=== PATIENT | female | born 1935 | race Caucasian/White ===

== ENCOUNTER 2024-11-02 11:07 | Inpatient (IN) | payer MEDICARE, SELFPAY ==
[2024-11-02] VITALS (82 sets, daily range): BP systolic 114–149; BP diastolic 62–88; PULSE 60–105; RESP 12; TEMP 36.7; O2SAT 85–99
--- NOTE | 2024-11-02 11:17 | ECG_ITS ---
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
--- NOTE | 2024-11-02 11:17 | XR_ITS ---
The [address] [address] Patient Name: NATAN BOLDEN MRN: [id number] date: 1935 Sex: F Assigned Patient Location: ER Current Patient Location: ER Accession/Order Number: [id number] Exam Date: 11/02/2024 11:25 Report Date: 11/02/2024 12:05 At the request of: SERGE SMITH Procedure: XR chest 1V EXAMINATION: XR chest 1V HISTORY: sob COMPARISON: XR chest 11/15/2012 FINDINGS: LUNGS: Dense opacities within medial right lung base and throughout mid and lower left lung. VASCULATURE: No increased pulmonary vasculature. PLEURA: Suspect left pleural effusion. CARDIAC: Cardiomegaly; grossly stable. MEDIASTINUM: No visible mass or adenopathy. BONES: Scoliotic curvature of thoracic spine. OTHER: Negative. XR/XR chest 1V IMPRESSION: 1. Moderate to marked basilar infiltrates, left greater than right. 2. Suspect small to moderate left pleural effusion. 3. Grossly stable cardiomegaly. Electronically authenticated by: KRISTY ANDERSON Date: 11/02/2024 12:05
--- NOTE | 2024-11-02 11:28 | PC.NURSE ---
turned oxyen up to 5L for a pulse ox of 87%, ER notified
[2024-11-02 11:42] LABS: Basophils Percent Auto 0.3 % (0.2-2.0); Eosinophils Percent Auto 0.6 % (0.9-7.0); Hematocrit 38.3 % (36.0-48.0); Hemoglobin 11.7 g/dL (12.0-16.0); Immature Granulocytes Abs Auto 0.08 10^3/uL (0.00-0.03); Immature Granulocytes Pct Auto 1.2 % (0.0-0.5); Lymphocytes Absolute Auto 0.9 10^3/uL (1.2-3.8); Lymphocytes Percent Auto 13.3 % (20.5-60.0); Mean Corpuscular HGB Conc 30.5 g/dL (29.9-35.2); Mean Corpuscular Volume 101.3 fL (81.0-99.0); Mean Platelet Volume 10.4 fL (9.5-13.5); Monocytes Absolute Auto 0.7 10^3/uL (0.3-0.8); Monocytes Percent Auto 9.8 % (1.7-12.0); Neutrophils Percent Auto 74.8 % (43.0-75.0); Platelet Count 169 10^3/uL (150-450); Red Blood Count 3.78 10^6/uL (4.20-5.40); Red Cell Distribution Width 14.6 % (11.0-15.0); White Blood Count 6.6 10^3/uL (4.0-11.0)
[2024-11-02] MEDS: IPRATROPIUM/ALBUTEROL SULFATE 3 ML AMPUL.NEB IH ×2 (11:48→18:32)
[2024-11-02 11:56] LABS: Influenza Virus A Antigen Negative; Influenza Virus B Antigen Negative; Internal Control Within Normal Limits; SARS-CoV-2 Ag NEGATIVE (NEGATIVE)
[2024-11-02 11:57] LABS: Alanine Aminotransferase 19 U/L (14-59); Albumin Globulin Ratio 1.1; Albumin Level 3.3 g/dL (3.4-5.0); Alkaline Phosphatase 72 U/L (46-116); Anion Gap 2.7; Aspartate Amino Transferase 22 U/L (15-37); Bilirubin Total 0.4 mg/dL (0.2-1.0); Carbon Dioxide 43.4 mmol/L (21.0-32.0); Chloride 98 mmol/L (98-107); Estimated GFR (African America >60 (>=60 mL/min/1.73m^2); Estimated GFR (Non-African Ame >60 (>=60 mL/min/1.73m^2); Glucose 132 mg/dL (74-106); Potassium 4.1 mmol/L (3.5-5.1); Sodium 140 mmol/L (136-145); Total Protein 6.3 g/dL (6.4-8.2)
[2024-11-02 12:03] LABS: Magnesium 1.7 mg/dL (1.8-2.4); Troponin I High Sensitivity 14.6 pg/mL (4.0-51.3)
[2024-11-02] MEDS: CEFTRIAXONE 1,000 MG in 0.9 % SODIUM CHLORIDE 50 ML 100 MG IV (13:00)
[2024-11-02 13:11] LABS: Allen Test POSITIVE (POSITIVE); Base Excess ABG 16.9 mmol/L (-2.0-2.0); HCO3 ABG 40.7 mmol/L (22.0-26.0); Liters per Minute 6; O2 Mode NC; Oxygen Saturation ABG 97.8 %; PO2 ABG 82.2 mmHg (80.0-100.0); pH ABG 7.463 (7.350-7.450)
[2024-11-02 13:12] LABS: ABG PCO2 56.9 mmHg (35.0-45.0); Puncture Site RR
[2024-11-02] MEDS: AZITHROMYCIN 500 MG in 0.9 % SODIUM CHLORIDE 250 ML 250 MG IV (13:28)
--- NOTE | 2024-11-02 13:30 | ED.SOB1 ---
HPI - SOB/Dyspnea General Chief Complaint: Shortness of Breath/Dyspnea Stated Complaint: WEAKNESS Time Seen by Provider: 11/02/24 11:17 Source: patient and caregiver Mode of arrival: ambulance History of Present Illness HPI Narrative: 89-year-old female coming to us from the [facility] with increasing shortness of breath for the last few days, the patient have a history of COPD and she is on 2 L nasal cannula at the baseline but for the last few days she has been using more oxygen, there is also cough there is no nausea vomiting or any chest pain, patient have no increasing leg swelling there is no exposure to anybody with similar symptoms The patient was provided with a breathing treatment and Solu-Medrol before arrival Related Data Home Medications ?Medication ?Instructions ?Recorded ?Confirmed albuterol sulfate 2.5 mg/3 mL 2.5 mg inhalation Q6H 11/02/24 11/02/24 (0.083 %) solution for nebulization alendronate 70 mg tablet 70 mg PO QWEEK 11/02/24 11/02/24 amlodipine 10 mg tablet 10 mg PO DAILY 11/02/24 11/02/24 apixaban 2.5 mg tablet (Eliquis) 2.5 mg PO BID 11/02/24 11/02/24 cholecalciferol (vitamin D3) 125 125 mcg PO DAILY 11/02/24 11/02/24 mcg (5,000 unit) tablet (Vitamin D3) guaifenesin 600 mg tablet, 600 mg PO BID 11/02/24 11/02/24 extended release 12 hr hydrochlorothiazide 12.5 mg capsule 12.5 mg PO DAILY 11/02/24 11/02/24 latanoprost 0.005 % eye drops 1 drp ophthalmic (eye) .QHS 11/02/24 11/02/24 metoprolol tartrate 25 mg tablet 25 mg PO BID 11/02/24 11/02/24 multivitamin (Daily Multi-Vitamin 1 tab PO DAILY 11/02/24 11/02/24 tablet) polyethylene glycol 3350 17 17 g PO DAILY 11/02/24 11/02/24 gram/dose oral powder (ClearLax) tiotropium 2.5 mcg-olodaterol 2.5 2 inh inhalation DAILY 11/02/24 11/02/24 mcg/actuation mist for inhalation (Stiolto Respimat) Allergies Allergy/AdvReac Type Severity Reaction Status Date / Time calcium AdvReac Mild Abdominal Verified 11/02/24 11:16 Pain Sulfa (Sulfonamide AdvReac Mild Abdominal Verified 11/02/24 11:16 Antibiotics) Pain Review of Systems ROS Status of ROS 10 or more systems reviewed and unremarkable except as noted in history and below [facility] Medical History (Updated 11/02/24 @ 13:37 by Karena Lamar MD) History of embolism ?Z86.718 - Personal history of other venous thrombosis and embolism (ICD-10) History of hypertension ?Z86.79 - Personal history of other diseases of the circulatory system (ICD-10) History of scoliosis ?Z87.39 - Personal history of other diseases of the musculoskeletal system and connective tissue (ICD-10) History of gastroesophageal reflux (GERD) ?Z87.19 - Personal history of other diseases of the digestive system (ICD-10) History of mitral valve disease ?Z86.79 - Personal history of other diseases of the circulatory system (ICD-10) History of anemia ?Z86.2 - Personal history of diseases of the blood and blood-forming organs and certain disorders involving the immune mechanism (ICD-10) History of heart failure ?Z86.79 - Personal history of other diseases of the circulatory system (ICD-10) History of atrial fibrillation ?Z86.79 - Personal history of other diseases of the circulatory system (ICD-10) History of COPD ?Z87.09 - Personal history of other diseases of the respiratory system (ICD-10) Hx of chronic respiratory failure ?Z87.09 - Personal history of other diseases of the respiratory system (ICD-10) Hx of bacterial pneumonia ?Z87.01 - Personal history of pneumonia (recurrent) (ICD-10) Exam Narrative Exam Narrative: Nurses notes and vital signs reviewed and patient is not hypoxic. General: Well-appearing and mild distress due to breathing Skin: Warm, dry, no pallor noted. No rash. Head: Normocephalic, atraumatic. Neck: Supple, non-tender. Eye: Pupils are equal, round and EOMI. No scleral icterus. Ears, Nose, Mouth, and Throat: TM are clear, no nasal mucosal hypertrophy. Oral mucosa is moist, no posterior oropharynx erythema, uvula is mid-line Cardiovascular: Regular Rate and Rhythm without murmur, gallop or rub. Respiratory: The patient have a decreased air entry bilaterally and the audible expiratory lung wheezes in upper lung rosales with the patient being tachypneic Back: No midline thoracic or lumbar vertebral tenderness. No CVA tenderness Musculoskeletal: normal ROM, no calf or popliteal tenderness, no lower extremity edema/swelling GI: Abdomen is soft, non-distended. Normal bowel sounds. No masses appreciated. No tenderness to palpation. No rebound, guarding, or rigidity noted. Neurological: A&O x4. No cranial nerve dysfunction observed. Moves all extremities. Sensation intact. Psychiatric: Cooperative and interactive. Normal mood and affect. Constitutional Vital Signs, click to edit/add: Last Vital Signs Temp 98.0 F 11/02/24 11:08 Pulse 73 11/02/24 11:08 Resp 26 H 11/02/24 11:08 BP 149/69 H 11/02/24 11:08 Pulse Ox 87 L 11/02/24 11:28 O2 Del Method Nasal Cannula 11/02/24 11:28 O2 Flow Rate 5 11/02/24 11:28 Course Vital Signs Vital signs: Vital Signs Temperature 98.0 F 11/02/24 11:08 Pulse Rate 73 11/02/24 11:08 Respiratory Rate 26 H 11/02/24 11:08 Blood Pressure 149/69 H 11/02/24 11:08 Pulse Oximetry 97 11/02/24 11:08 Oxygen Delivery Method Nasal Cannula 11/02/24 11:08 Oxygen Delivery Flow Rate 4 11/02/24 11:08 Temperature 98.0 F 11/02/24 11:08 Pulse Rate 73 11/02/24 11:08 Respiratory Rate 26 H 11/02/24 11:08 Blood Pressure 149/69 H 11/02/24 11:08 Pulse Oximetry 87 L 11/02/24 11:28 Oxygen Delivery Method Nasal Cannula 11/02/24 11:28 Oxygen Delivery Flow Rate 5 11/02/24 11:28 MDM - SOB/Dyspnea MDM Narrative Medical decision making narrative: The patient EKG in the ER showing sinus rhythm with a heart rate of [address] elevation or depression CBC and chemistry showed no acute significant pathology except for the elevated bicarb which is mostly secondary to CO2 retention The patient was saturating 85 to 89% on 5 L nasal cannula and she was still tachypneic She was placed on the BiPAP at 10/5 Chest x-ray shows obvious pneumonia as well as possible effusion The patient was provided with ceftriaxone and azithromycin after she had a blood culture obtained Patient case was discussed with and he agreed on admitting pt for further management of Hypoxemia and copd Patient went was placed on BiPAP she mentioned that she does not want to be intubated Lab Data Labs: Lab Results 11/02/24 11/02/24 11/02/24 Range/Units 11:20 11:29 13:05 WBC 6.6 (4.0-11.0) 10^3/uL RBC 3.78 L (4.20-5.40) 10^6/uL Hgb 11.7 L (12.0-16.0) g/dL Hct 38.3 (36.0-48.0) % MCV 101.3 H (81.0-99.0) fL MCH 31.0 (26.7-34.0) pg MCHC 30.5 (29.9-35.2) g/dL RDW 14.6 (11.0-15.0) % Plt Count 169 (150-450) 10^3/uL MPV 10.4 (9.5-13.5) fL Neut % (Auto) 74.8 (43.0-75.0) % Lymph % (Auto) 13.3 L (20.5-60.0) % [place] % (Auto) 9.8 (1.7-12.0) % Eos % (Auto) 0.6 L (0.9-7.0) % Baso % (Auto) 0.3 (0.2-2.0) % Neut # (Auto) 5.0 (1.4-6.5) 10^3/uL Lymph # (Auto) 0.9 L (1.2-3.8) 10^3/uL [place] # (Auto) 0.7 (0.3-0.8) 10^3/uL Eos # (Auto) 0.0 (0.0-0.7) 10^3/uL Baso # (Auto) 0.0 (0.0-0.1) 10^3/uL Abs Immat Gran (auto) 0.08 H (0.00-0.03) 10^3/uL Imm/Tot Granulo (auto) 1.2 H (0.0-0.5) % Puncture Site Rr ABG pH 7.463 H (7.350-7.450) ABG pCO2 56.9 H* (35.0-45.0) mmHg ABG pO2 82.2 (80.0-100.0) mmHg ABG HCO3 40.7 H (22.0-26.0) mmol/L ABG O2 Saturation 97.8 % ABG Base Excess 16.9 H (-2.0-2.0) mmol/L John Test Positive (POSITIVE) O2 Liters/Min 6 Sodium 140 (136-145) mmol/L Potassium 4.1 (3.5-5.1) mmol/L Chloride 98 (98-107) mmol/L Carbon Dioxide 43.4 H (21.0-32.0) mmol/L Anion Gap 2.7 BUN 11.0 (7.0-18.0) mg/dL Creatinine 0.61 (0.55-1.02) mg/dL Est GFR ( Amer) >60 (>=60 mL/min/1.73m^2) Est GFR (Non-Af Amer) >60 (>=60 mL/min/1.73m^2) BUN/Creatinine Ratio 18.0 Glucose 132 H (74-106) mg/dL Calcium 9.0 (8.5-10.1) mg/dL Magnesium 1.7 L (1.8-2.4) mg/dL Total Bilirubin 0.4 (0.2-1.0) mg/dL AST 22 (15-37) U/L ALT 19 (14-59) U/L Alkaline Phosphatase 72 (46-116) U/L Troponin I High Sens 14.6 (4.0-51.3) pg/mL NT-Pro-B Natriuret Pep 231.0 (<=1800.0) pg/mL Total Protein 6.3 L (6.4-8.2) g/dL Albumin 3.3 L (3.4-5.0) g/dL Globulin 3.0 g/dL Albumin/Globulin Ratio 1.1 Influenza Type A Ag Negative Influenza Type B Ag Negative SARS-CoV-2 Ag (CV2AG) Negative (NEGATIVE) Discharge Plan Discharge Chief Complaint: Shortness of Breath/Dyspnea Clinical Impression: Hypoxemia, Respiratory failure, COPD exacerbation, Pneumonia Patient Disposition: Admitted As Inpatient Time of Disposition Decision: 13:37
[2024-11-02] MEDS: MAGNESIUM SULFATE IN WATER 2 GM/50 ML PREMIX IV (13:54)
[2024-11-02 15:58] LABS: Bilirubin Urine NEGATIVE (NEGATIVE); Blood Urine NEGATIVE (NEGATIVE); Clarity Urine CLEAR (CLEAR); Color Urine LT. YELLOW (YELLOW); Glucose Urine UA NEGATIVE (NEGATIVE); Ketones Urine NEGATIVE (NEGATIVE); Leukocyte Esterase Urine SMALL (NEGATIVE); Nitrite Urine POSITIVE (NEGATIVE); Protein Urine NEGATIVE (NEG/TRACE); Specific Gravity Urine 1.015 (1.005-1.025); Urobilinogen Urine 0.2 EU/dL (0.2-1.0)
[2024-11-02 16:15] LABS: Bacteria Urine LARGE #/HPF (NONE SEEN); Cast Seen? NONE SEEN #/LPF (NONE SEEN); Crystals Seen? None Seen #/HPF (None Seen); Mucus Urine SMALL (NONE SEEN); RBC Urine 0-2 #/HPF (0-2); Squamous Epithelial Cell Urine FEW #/LPF (NONE/RARE); Transitional Epi Cells Urine RARE #/LPF (NONE SEEN); Urine Culture Indicated YES
--- NOTE | 2024-11-02 18:46 | US_ITS ---
The [place] [id number] Patient Name: NATAN BOLDEN MRN: [id number] date: 1935 Sex: F Assigned Patient Location: ER Current Patient Location: ER Accession/Order Number: [id number] Exam Date: 11/02/2024 19:00 Report Date: 11/02/2024 20:20 At the request of: SERGE SMITH Procedure: US venous doppler LE BI CLINICAL DATA: Leg pain PROCEDURE: Bilateral lower extremity venous duplex ultrasound TECHNIQUE: [place]caraz-scale, color flow, and waveform spectral analysis was performed of the bilateral lower extremities. FINDINGS: The bilateral common femoral, profunda femoral, femoral, and popliteal veins were compressible. The saphenous veins were compressible. No venous thrombosis was seen. The veins fill with color Doppler. Augmentation was normal. US/US venous doppler LE BI IMPRESSION: 1. No acute lower extremity deep venous thrombosis. 2. No superficial venous thrombosis. Electronically authenticated by: Mary Jo MADSEN Date: 11/02/2024 20:20
--- NOTE | 2024-11-02 18:58 | P.HP_ITS ---
HPI H&P: HPI History of Present Illness Chief complaint: WEAKNESS Narrative: Patient with a history of emphysema currently a resident at a rehabilitation alf, presented to the emergency room with increasing cough and shortness of breath and hypoxia, but 6 weeks ago she was on 2 L, was admitted to an outside facility for COPD was able to improve her oxygen and but still requiring 4 L, he was then transferred to rehab for the last month, today though having increasing hypoxia now requiring up to 6 L, in the emergency room O2 saturation was 85%. When I saw her she was still in the emergency room secondary to being on BiPAP and awaiting transfer to the intensive care unit, resting fairly comfortably in bed some cough throughout the evaluation, maybe some mild conversational dyspnea denied chest pain Opioid HPI Opioid Management Most Recent Pain and Opioid Data: No Data to Display Review of Systems ROS Status of ROS 10 or more systems reviewed and unremark able except as noted in history and below [facility] Medical History (Updated 11/02/24 @ 13:37 by Karena Lamar MD) History of embolism ?Z86.718 - Personal history of other venous thrombosis and embolism (ICD-10) History of hypertension ?Z86.79 - Personal history of other diseases of the circulatory system (ICD- 10) History of scoliosis ?Z87.39 - Personal history of other diseases of the musculoskeletal system and connective tissue (ICD-10) History of gastroesophageal reflux (GERD) ?Z87.19 - Personal history of other diseases of the digestive system (ICD-10) History of mitral valve disease ?Z86.79 - Personal history of other diseases of the circulatory system (ICD- 10) History of anemia ?Z86.2 - Personal history of diseases of the blood and blood-forming organs and certain disorders involving the immune mechanism (ICD-10) History of heart failure ?Z86.79 - Personal history of other diseases of the circulatory system (ICD- 10) History of atrial fibrillation ?Z86.79 - Personal history of other diseases of the circulatory system (ICD- 10) History of COPD ?Z87.09 - Personal history of other diseases of the respiratory system (ICD- 10) Hx of chronic respiratory failure ?Z87.09 - Personal history of other diseases of the respiratory system (ICD- 10) Hx of bacterial pneumonia ?Z87.01 - Personal history of pneumonia (recurrent) (ICD-10) Meds Home Medications and Allergies Home Medications ?Medication ?Instructions ?Recorded ?Confirmed ?Type albuterol sulfate 2.5 mg/3 mL 2.5 mg inhalation Q6H 11/02/24 11/02/24 History (0.083 %) solution for nebulization alendronate 70 mg tablet 70 mg PO QWEEK 11/02/24 11/02/24 History amlodipine 10 mg tablet 10 mg PO DAILY 11/02/24 11/02/24 History apixaban 2.5 mg tablet (Eliquis) 2.5 mg PO BID 11/02/24 11/02/24 History cholecalciferol (vitamin D3) 125 125 mcg PO DAILY 11/02/24 11/02/24 History mcg (5,000 unit) tablet (Vitamin D3) guaifenesin 600 mg tablet, 600 mg PO BID 11/02/24 11/02/24 History extended release 12 hr hydrochlorothiazide 12.5 mg capsule 12.5 mg PO DAILY 11/02/24 11/02/24 History latanoprost 0.005 % eye drops 1 drp ophthalmic (eye) .QHS 11/02/24 11/02/24 History metoprolol tartrate 25 mg tablet 25 mg PO BID 11/02/24 11/02/24 History multivitamin (Daily Multi-Vitamin 1 tab PO DAILY 11/02/24 11/02/24 History tablet) polyethylene glycol 3350 17 17 g PO DAILY 11/02/24 11/02/24 History gram/dose oral powder (ClearLax) tiotropium 2.5 mcg-olodaterol 2.5 2 inh inhalation DAILY 11/02/24 11/02/24 History mcg/actuation mist for inhalation (Stiolto Respimat) Allergies Allergy/AdvReac Type Severity Reaction Status Date / Time calcium AdvReac Mild Abdominal Verified 11/02/24 11:16 Pain Sulfa (Sulfonamide AdvReac Mild Abdominal Verified 11/02/24 11:16 Antibiotics) Pain Exam Constitutional Vital Signs, click to edit/add: Last Vital Signs Temp 98.0 F 11/02/24 11:08 Pulse 95 H 11/02/24 18:40 Resp 39 H 11/02/24 18:40 BP 126/67 11/02/24 18:00 Pulse Ox 90 L 11/02/24 18:40 O2 Del Method Nasal Cannula 11/02/24 11:28 O2 Flow Rate 5 11/02/24 11:28 FiO2 40 11/02/24 12:46 Results Labs Labs: Short CBC 11/02/24 Range/Units 11:29 WBC 6.6 (4.0-11.0) 10^3/uL Hgb 11.7 L (12.0-16.0) g/dL Hct 38.3 (36.0-48.0) % Plt Count 169 (150-450) 10^3/uL BMP 11/02/24 11:29 Sodium 140 Potassium 4.1 Chloride 98 Carbon Dioxide 43.4 H BUN 11.0 Creatinine 0.61 Glucose 132 H Calcium 9.0 Liver Function 11/02/24 Range/Units 11:29 Total Bilirubin 0.4 (0.2-1.0) mg/dL AST 22 (15-37) U/L ALT 19 (14-59) U/L Alkaline Phosphatase 72 (46-116) U/L Albumin 3.3 L (3.4-5.0) g/dL Urine 11/02/24 Range/Units 15:50 Urine Color Lt. yellow (YELLOW) Urine Clarity Clear (CLEAR) Urine pH 6.0 (5.0-9.0) Ur Specific [place] 1.015 (1.005-1.025) Urine Protein Negative (NEG/TRACE) mg/dL Urine Glucose (UA) Negative (NEGATIVE) mg/dL ABG ABG results: 11/02/24 13:05 ABG pH 7.463 H ABG pCO2 56.9 H* ABG pO2 82.2 ABG HCO3 40.7 H ABG O2 Saturation 97.8 ABG Base Excess 16.9 H Assessment and Plan Assessment and Plan (1) COPD exacerbation: Plan Admission findings: Sinus tachycardia, respiratory distress, acute hypoxia respiratory failure with O2 sat of 85% on 4 L requiring BiPAP ventilation, leukocytosis normal but significant left shift, elevated pCO2 due to acute exacerbation of chronic oxygen dependent hypercapnic respiratory failure COPD secondary to bilateral healthcare acquired pneumonia Healthcare acquired pneumonia resulting in acute hypoxic respiratory failure requiring BiPAP ventilation with acute exacerbation of chronic hypoxic respiratory failure oxygen dependent hypercapnic COPD-steroids, aerosols, IV antibiotics to cover broad-spectrum antibiotics therapy, try to obtain sputum culture, based on progress may consider CTA of chest tomorrow Acute UTI-culture pending, monitor results of cultures, antibiotics as outlined above likely carpninoska Iron deficiency anemia-monitor daily Osteoporosis-can hold alendronate while in the hospital Chronic anticoagulation secondary to atrial fibrillation-continue with current medication Hypertension-continue with current medication Chronic constipation-continue current medication Admission status: Patient with bilateral pneumonia with acute hypoxia respiratory failure requiring BiPAP ventilation, healthcare acquired pneumonia, medically necessary treatment will span 2 midnights. Inpatient status.
[2024-11-02] MEDS: PIPERACILLIN SODIUM/TAZOBACTAM 3.375 GM in 0.9 % SODIUM CHLORIDE 50 ML IV (20:21)
[2024-11-02 20:35] LABS: Lactate/Lactic Acid 3.5 mmol/L (0.4-2.0)
[2024-11-02] MEDS: GUAIFENESIN 600 MG TAB.ER.12H PO (20:50)
[2024-11-02] MEDS: APIXABAN 5 MG TABLET 2.5 MG PO (20:50)
[2024-11-02] MEDS: LATANOPROST 0.005% 2.5 ML BOTTLE 1 DROP OP (20:50)
[2024-11-02] MEDS: METOPROLOL TARTRATE 25 MG TABLET PO (20:50)
[2024-11-02] MEDS: VANCOMYCIN HCL 1,000 MG in 0.9 % SODIUM CHLORIDE 250 ML 250 MG IV (20:51)
[2024-11-02] MEDS: METHYLPREDNISOLONE SOD SUCC PF 125 MG/2 ML VIAL IVP (21:58)
[2024-11-03] VITALS (131 sets, daily range): BP systolic 111–139; BP diastolic 54–90; PULSE 60–119; RESP 12; TEMP 36.3–36.8; O2SAT 79–97; BMI 25.8
[2024-11-03] MEDS: ALBUTEROL SULFATE 2.5 MG/3 ML VIAL NEB IH (00:11)
--- NOTE | 2024-11-03 02:55 | RESP.RT ---
Titrated pressure to 12/6 and FiO2 to 50% to maintain SpO2 > 90%
[2024-11-03] MEDS: PIPERACILLIN SODIUM/TAZOBACTAM 3.375 GM in 0.9 % SODIUM CHLORIDE 50 ML IV ×3 (03:58→19:22)
[2024-11-03] MEDS: METHYLPREDNISOLONE SOD SUCC PF 125 MG/2 ML VIAL IVP ×4 (03:58→21:16)
[2024-11-03] MEDS: IPRATROPIUM/ALBUTEROL SULFATE 3 ML AMPUL.NEB IH ×4 (04:33→23:24)
[2024-11-03 04:55] LABS: Basophils Percent Auto 0.2 % (0.2-2.0); Hematocrit 38.2 % (36.0-48.0); Hemoglobin 11.5 g/dL (12.0-16.0); Immature Granulocytes Abs Auto 0.05 10^3/uL (0.00-0.03); Immature Granulocytes Pct Auto 0.8 % (0.0-0.5); Lymphocytes Absolute Auto 0.3 10^3/uL (1.2-3.8); Lymphocytes Percent Auto 4.6 % (20.5-60.0); Mean Corpuscular HGB Conc 30.1 g/dL (29.9-35.2); Mean Corpuscular Hemoglobin 29.9 pg (26.7-34.0); Mean Corpuscular Volume 99.2 fL (81.0-99.0); Mean Platelet Volume 11.4 fL (9.5-13.5); Monocytes Absolute Auto 0.1 10^3/uL (0.3-0.8); Monocytes Percent Auto 1.8 % (1.7-12.0); Neutrophils Absolute Auto 5.8 10^3/uL (1.4-6.5); Neutrophils Percent Auto 92.6 % (43.0-75.0); Platelet Count 169 10^3/uL (150-450); Red Blood Count 3.85 10^6/uL (4.20-5.40); Red Cell Distribution Width 14.6 % (11.0-15.0); White Blood Count 6.3 10^3/uL (4.0-11.0)
[2024-11-03 05:04] LABS: Anion Gap 6.4; Calcium 8.7 mg/dL (8.5-10.1); Carbon Dioxide 40.6 mmol/L (21.0-32.0); Chloride 98 mmol/L (98-107); Estimated GFR (African America >60 (>=60 mL/min/1.73m^2); Estimated GFR (Non-African Ame >60 (>=60 mL/min/1.73m^2); Glucose 179 mg/dL (74-106); Sodium 141 mmol/L (136-145)
--- NOTE | 2024-11-03 05:22 | P.PN_ITS ---
Progress Note: Subjective Subjective Interval history: Patient continues bumetanide normal I saw her in the intensive care unit this morning, she was off the BiPAP with O2 sats in the low 90s Exam Constitutional Vital Signs, click to edit/add: Last Vital Signs Temp 97.4 F L 11/03/24 05:03 Pulse 80 11/03/24 05:08 Resp 30 H 11/03/24 05:08 BP 137/76 11/03/24 05:03 Pulse Ox 95 11/03/24 05:08 O2 Del Method BIPAP 11/03/24 05:08 O2 Flow Rate 5 11/02/24 11:28 FiO2 50 11/03/24 05:08 Documenting provider has reviewed patient's vital signs: yes Common normals: apparent distress (Mild respiratory distress with cough) Lymph Lymphatic: no lymphadenopathy noted Chest Common normals: inspection of chest normal Respiratory Common normals: abnormal respiratory effort (Mild respiratory distress with cough) Auscultation: rhonchi Progress Note: Objective Labs Labs: Short CBC 11/02/24 11/03/24 Range/Units 11:29 04:11 WBC 6.6 6.3 (4.0-11.0) 10^3/uL Hgb 11.7 L 11.5 L (12.0-16.0) g/dL Hct 38.3 38.2 (36.0-48.0) % Plt Count 169 169 (150-450) 10^3/uL BMP 11/02/24 11:29 Sodium 140 Potassium 4.1 Chloride 98 Carbon Dioxide 43.4 H BUN 11.0 Creatinine 0.61 Glucose 132 H Calcium 9.0 Liver Function 11/02/24 Range/Units 11:29 Total Bilirubin 0.4 (0.2-1.0) mg/dL AST 22 (15-37) U/L ALT 19 (14-59) U/L Alkaline Phosphatase 72 (46-116) U/L Albumin 3.3 L (3.4-5.0) g/dL Urine 11/02/24 Range/Units 15:50 Urine Color Lt. yellow (YELLOW) Urine Clarity Clear (CLEAR) Urine pH 6.0 (5.0-9.0) Ur Specific [place] 1.015 (1.005-1.025) Urine Protein Negative (NEG/TRACE) mg/dL Urine Glucose (UA) Negative (NEGATIVE) mg/dL Progress Note: A&P Assessment and Plan (1) COPD exacerbation: Plan Admission findings: Sinus tachycardia, respiratory distress, acute hypoxia respiratory failure with O2 sat of 85% on 4 L requiring BiPAP ventilation, lactic acidosis, leukocytosis normal but significant left shift, elevated pCO2 due to acute exacerbation of chronic oxygen dependent hypercapnic respiratory failure COPD secondary to bilateral healthcare acquired pneumonia resulting in severe sepsis Severe sepsis due to Healthcare acquired pneumonia resulting in acute hypoxic respiratory failure requiring BiPAP ventilation with acute exacerbation of chronic hypoxic respiratory failure oxygen dependent hypercapnic COPD-off of BiPAP currently, continue with steroids, aerosols, IV antibiotics, trying to obtain sputum culture still, CT scan did not show any pulmonary embolism. Patient unable to tolerate large volume volume fluid boluses as typically recommended by severe sepsis but blood pressure was stable Acute UTI-culture pending, monitor results of cultures, antibiotics as outlined above likely carpal Iron deficiency anemia-monitor daily-Down somewhat today Osteoporosis-can hold alendronate while in the hospital Chronic anticoagulation secondary to atrial fibrillation-continue with current medication Hypertension-continue with current medication Left ventricular hypertrophy-maintain quality blood pressure control Right bundle branch block-stable Hypomagnesemia-supplemented, monitor Chronic constipation-continue current medication Mild protein calorie malnutrition-encourage higher protein diet Admission status: Patient with bilateral pneumonia with acute hypoxia respiratory failure requiring BiPAP ventilation, healthcare acquired pneumonia with severe sepsis, medically necessary treatment will span 2 midnights. Inpatient status. ?
--- NOTE | 2024-11-03 05:23 | CT_ITS ---
[address] [address] Patient Name: NATAN BOLDEN MRN: [id number] date: 1935 Sex: F Assigned Patient Location: ICU Current Patient Location: ICU Accession/Order Number: [id number] Exam Date: 11/03/2024 07:45 Report Date: 11/03/2024 08:49 At the request of: AGAPITO ARANDA Procedure: CT angio chest EXAMINATION: CT angio chest HISTORY: acute hypoxia COMPARISON: XR chest 11/02/2024 TECHNIQUE: Multi-planar CT images were created with IV contrast. Axial, Coronal, and Sagittal images. Dose reduction techniques were achieved by using automated exposure control and/or adjustment of mA and/or kV according to patient size and/or use of iterative reconstruction technique. 3-D reconstruction was performed on a separate workstation. FINDINGS: VASCULATURE: No pulmonary embolism or abnormal opacity. LUNGS: Marked emphysematous changes. Partial consolidation/collapse of the basilar segments of the lower lobes bilaterally with patent bronchi into these regions. PLEURA: No mass, effusion, or pneumothorax. [place]: No mass or adenopathy. MEDIASTINUM: No mass or adenopathy. CARDIAC: Cardiomegaly. No pericardial effusion. AORTA: No aneurysm or dissection. CHEST WALL: No mass or axillary adenopathy. BONES: Multiple old healed rib fractures. Kyphosis and scoliosis of thoracic spine. LIMITED ABDOMEN: No suspicious findings. Limited images of the upper abdomen. OTHER: Negative. CT/CT angio chest IMPRESSION: 1. No pulmonary embolism. 2. Hyper expanded lungs compatible with moderate to marked COPD/emphysema. 3. Partial collapse as consolidation of the basilar segments of the lower lobes bilaterally. Pneumonia? 4. Cardiomegaly. Electronically authenticated by: KRISTY ANDERSON Date: 11/03/2024 08:49
[2024-11-03 05:52] LABS: Magnesium 2.2 mg/dL (1.8-2.4)
--- NOTE | 2024-11-03 09:04 | SWNOTE1 ---
Pt is from the [facility] and she is a precert to return.
--- NOTE | 2024-11-03 09:11 | SWNOTE1 ---
SW faxed ED note, H&P, PT note, labs, vitals, diagnostic imaging, and PT note to [place] so precert can be started for pt to return once medically stable. SW to send OT once eval is completed.
[2024-11-03] MEDS: POLYETHYLENE GLYCOL 3350 17 GM POWDER PACKET PO (09:29)
--- NOTE | 2024-11-03 09:32 | CM.NOTE ---
Rounds made with Dr. Quintana, no discharge today. Pt from [facility] skilled, pt verbalizes she would like to return to [facility] at discharge. RN will attempt to wean oxygen as tolerated.
[2024-11-03] MEDS: CHOLECALCIFEROL (VITAMIN D3) 125 MCG/5,000 UNIT TABLET PO (09:33)
[2024-11-03] MEDS: GUAIFENESIN 600 MG TAB.ER.12H PO ×2 (09:33→20:20)
[2024-11-03] MEDS: APIXABAN 5 MG TABLET 2.5 MG PO ×2 (09:33→20:20)
[2024-11-03] MEDS: AMLODIPINE BESYLATE 5 MG TABLET 10 MG PO (09:33)
[2024-11-03] MEDS: HYDROCHLOROTHIAZIDE 25 MG TABLET 12.5 MG PO (09:33)
--- NOTE | 2024-11-03 10:01 | CM.NOTE ---
Important Message From Medicare discussed with pt, pt verbalizes understanding and signs paper. Original given to pt and copy placed on pt's chart.
[2024-11-03] MEDS: MULTIVITAMIN TABLET 1 TAB PO (10:37)
[2024-11-03] MEDS: METOPROLOL TARTRATE 25 MG TABLET PO ×2 (10:37→20:20)
--- NOTE | 2024-11-03 12:22 | SWNOTE1 ---
ADITI spoke to Betsy at [facility] and precert started.
--- NOTE | 2024-11-03 14:00 | SWNOTE1 ---
SW put together packet for weekend and [place] will call if she gets approved.
[2024-11-03] MEDS: VANCOMYCIN HCL 1,000 MG in 0.9 % SODIUM CHLORIDE 250 ML 250 MG IV (20:20)
[2024-11-03] MEDS: CALCIUM CARBONATE 500 MG (200MG ELEMENTAL) TAB CHEW PO (23:00)
[2024-11-03] MEDS: lidocaine HCL 15 ML, MAG HYDROX/ALUMINUM HYD/SIMETH 30 ML, HYOSCYAMINE SULFATE 0.25 MG PO (23:01)
--- NOTE | 2024-11-03 23:25 | RESP.RT ---
Placed on bipap for hs. See bipap charting
[2024-11-04] VITALS (104 sets, daily range): BP systolic 111–156; BP diastolic 65–93; PULSE 70–105; TEMP 36.6–37.1; O2SAT 87–98
[2024-11-04 01:28] LABS: Troponin I High Sensitivity 12.5 pg/mL (4.0-51.3)
[2024-11-04] MEDS: METHYLPREDNISOLONE SOD SUCC PF 125 MG/2 ML VIAL IVP ×4 (05:17→21:24)
[2024-11-04] MEDS: PIPERACILLIN SODIUM/TAZOBACTAM 3.375 GM in 0.9 % SODIUM CHLORIDE 50 ML IV (05:17)
[2024-11-04] MEDS: IPRATROPIUM/ALBUTEROL SULFATE 3 ML AMPUL.NEB IH ×4 (05:19→23:08)
[2024-11-04 05:47] LABS: Hematocrit 37.1 % (36.0-48.0); Hemoglobin 11.3 g/dL (12.0-16.0); Mean Corpuscular HGB Conc 30.5 g/dL (29.9-35.2); Mean Corpuscular Hemoglobin 30.5 pg (26.7-34.0); Mean Platelet Volume 11.2 fL (9.5-13.5); Platelet Count 180 10^3/uL (150-450); Red Blood Count 3.71 10^6/uL (4.20-5.40); Red Cell Distribution Width 14.6 % (11.0-15.0); White Blood Count 13.8 10^3/uL (4.0-11.0)
[2024-11-04 06:01] LABS: BUN Creatinine Ratio 39.5; Carbon Dioxide 40.3 mmol/L (21.0-32.0); Chloride 99 mmol/L (98-107); Estimated GFR (African America >60 (>=60 mL/min/1.73m^2); Estimated GFR (Non-African Ame >60 (>=60 mL/min/1.73m^2); Glucose 221 mg/dL (74-106); Potassium 4.3 mmol/L (3.5-5.1); Sodium 140 mmol/L (136-145)
[2024-11-04 06:15] LABS: Lymphocytes Absolute Manual 0.27 10^3/uL (1.20-3.80); Monocytes Absolute Manual 0.55 10^3/uL (0.30-0.80); Segmented Neut Absolute Manual 12.97 10^3/uL (1.4-6.5)
[2024-11-04] MEDS: MULTIVITAMIN TABLET 1 TAB PO (08:28)
[2024-11-04] MEDS: APIXABAN 5 MG TABLET 2.5 MG PO ×2 (08:28→21:23)
[2024-11-04] MEDS: POLYETHYLENE GLYCOL 3350 17 GM POWDER PACKET PO (08:28)
[2024-11-04] MEDS: HYDROCHLOROTHIAZIDE 25 MG TABLET 12.5 MG PO (08:29)
[2024-11-04] MEDS: AMLODIPINE BESYLATE 5 MG TABLET 10 MG PO (08:29)
[2024-11-04] MEDS: CHOLECALCIFEROL (VITAMIN D3) 125 MCG/5,000 UNIT TABLET PO (08:29)
[2024-11-04] MEDS: METOPROLOL TARTRATE 25 MG TABLET PO ×2 (08:29→21:23)
[2024-11-04] MEDS: GUAIFENESIN 600 MG TAB.ER.12H PO ×2 (08:29→21:23)
[2024-11-04] MEDS: CEFTRIAXONE 1,000 MG in 0.9 % SODIUM CHLORIDE 50 ML 100 MG IV (09:23)
[2024-11-04] MEDS: LEVOFLOXACIN IN DEXTROSE 5 % 750 MG/150 ML PREMIX 100 MG IV (10:02)
--- NOTE | 2024-11-04 11:33 | PT.DAILY ---
Physical Therapy Daily Note PT Daily Note/Assess Start: 11/03/24 08:27 Freq: Status: Active Protocol: Document 11/04/24 11:24 [id number] (Rec: 11/04/24 11:33 [id number]) Physical Therapy Daily Note/Assessment Time In/Time Out Time In 09:34 Time Out 09:46 Pain In Pain Level 0 Pain Out Pain Level 0 Subjective Subjective Patient received seated in chair at bedside and on Vapotherm and legs elevated. Agreeable to participate with PT, requests to not walk to far. Therapeutic Exercise Time Therapeutic Exercise 4 Minutes (minutes) Therapeutic Exercise 0 Units Therapeutic Exercise Treatment Therapeutic Exercise Seated DELMA LE ther ex to increase strength for toe/heel Treatment raises, hip ABD and LAQ x 10 reps, in standing for marching 2(5), completed between sit to stands. Therapeutic Activity Time Therapeutic Activity 8 Minutes (minutes) Therapeutic Activity 1 Units Therapeutic Activity Treatment Chair Transfer Contact Guard Assist Ability Therapeutic Activity O2 level prior to functional movement @ 95%. Sit>stand Comments 2WW CGA +1, performed 3 reps while standing for 1 minute each. Required ~30s therapeutic rest break between reps. O2 level @ 93% after sit to stands. Patient does take 1-2 small steps forward and back when standing. Stand>sit CGA +1, patient uses DELMA UE to control descent to chair. O2 level 94% after returning to sitting. Patients legs elevated on foot rest of chair, CBWR and needs met. Total Physical Therapy Time Total Therapy 12 Minutes Total Physical 1 Therapy Units Summary Daily Note Summary Patient is fatigued and SOB after performing sit to stands. Patient would benefit from return to [facility] and receive PT to address functional mobility deficits.
--- NOTE | 2024-11-04 12:55 | P.PN_ITS ---
Progress Note: Subjective Subjective Interval history: Patient feels better this am. Placed on vapotherm and less SOB. Chest not as tight but continued symptoms. Mild cough and sputum. Afebrile. No chest pain or palpitations. Decreased appetite but no emesis or diarrhea. Continued weakness. Exam Constitutional Vital Signs, click to edit/add: Last Vital Signs Temp 98.1 F 11/04/24 11:41 Pulse 73 11/04/24 11:41 Resp 18 11/04/24 11:41 BP 111/65 11/04/24 11:41 Pulse Ox 97 11/04/24 11:41 O2 Del Method Vapotherm 11/04/24 11:41 O2 Flow Rate 40 11/04/24 10:21 FiO2 40 11/04/24 11:41 Documenting provider has reviewed patient's vital signs: yes Common normals: no apparent distress, oriented x3 and alert HENMT Common normals: normocephalic Eye Common normals: PERRL and EOMs intact bilaterally Respiratory Auscultation: diminished lung sounds Cardio Common normals: regular rate, regular rhythm, no gallops, no murmurs and no rub GI Common normals: Normal to inspection, nondistended, normoactive bowel sounds present and non-tender Extremity Common normals: no pedal edema Progress Note: Objective Labs Labs: Short CBC 11/04/24 Range/Units 05:34 WBC 13.8 H (4.0-11.0) 10^3/uL Hgb 11.3 L (12.0-16.0) g/dL Hct 37.1 (36.0-48.0) % Plt Count 180 (150-450) 10^3/uL [facility] 11/04/24 05:34 Sodium 140 Potassium 4.3 Chloride 99 Carbon Dioxide 40.3 H BUN 32.0 H Creatinine 0.81 Glucose 221 H Calcium 9.0 Progress Note: A&P Assessment and Plan (1) Pneumonia: (2) COPD exacerbation: (3) Acute on chronic respiratory failure with hypoxia and hypercapnia: (4) Benign essential hypertension: (5) Paroxysmal atrial fibrillation: Plan Patient feels much better on high flow oxygen. Continue steroids and wean O2 as tolerated. Change antibiotics to levaquin and rocephin. Continue PT for weakness. Patient wants to change code status to DNRCC-A with no intubation.
[2024-11-05] VITALS (40 sets, daily range): BP systolic 136–157; BP diastolic 66–87; PULSE 55–102; TEMP 36.6–36.9; O2SAT 86–94
[2024-11-05] MEDS: METHYLPREDNISOLONE SOD SUCC PF 125 MG/2 ML VIAL IVP ×4 (03:56→22:04)
--- NOTE | 2024-11-05 04:09 | PC.NURSE ---
Pt's SpO2 was 95% on 40L 45% Vapotherm at 0400. Pt titrated to 40L 40% Vapotherm at 0400. Pt's SpO2 now 94% on 40L 40% Vapotherm. RT informed.
[2024-11-05] MEDS: IPRATROPIUM/ALBUTEROL SULFATE 3 ML AMPUL.NEB IH ×4 (05:11→23:38)
[2024-11-05 05:54] LABS: Basophils Percent Auto 0.1 % (0.2-2.0); Hematocrit 37.2 % (36.0-48.0); Hemoglobin 11.5 g/dL (12.0-16.0); Immature Granulocytes Abs Auto 0.07 10^3/uL (0.00-0.03); Immature Granulocytes Pct Auto 0.6 % (0.0-0.5); Lymphocytes Absolute Auto 0.2 10^3/uL (1.2-3.8); Mean Corpuscular HGB Conc 30.9 g/dL (29.9-35.2); Mean Corpuscular Hemoglobin 30.8 pg (26.7-34.0); Mean Corpuscular Volume 99.7 fL (81.0-99.0); Mean Platelet Volume 11.4 fL (9.5-13.5); Monocytes Absolute Auto 0.2 10^3/uL (0.3-0.8); Monocytes Percent Auto 2.1 % (1.7-12.0); Neutrophils Absolute Auto 10.9 10^3/uL (1.4-6.5); Neutrophils Percent Auto 95.2 % (43.0-75.0); Platelet Count 166 10^3/uL (150-450); Red Blood Count 3.73 10^6/uL (4.20-5.40); Red Cell Distribution Width 14.5 % (11.0-15.0); White Blood Count 11.4 10^3/uL (4.0-11.0)
[2024-11-05 05:59] LABS: Anion Gap 4.5; BUN Creatinine Ratio 42.4; Calcium 8.4 mg/dL (8.5-10.1); Chloride 100 mmol/L (98-107); Estimated GFR (African America >60 (>=60 mL/min/1.73m^2); Estimated GFR (Non-African Ame >60 (>=60 mL/min/1.73m^2); Glucose 195 mg/dL (74-106); Potassium 4.5 mmol/L (3.5-5.1); Sodium 141 mmol/L (136-145)
[2024-11-05] MEDS: METOPROLOL TARTRATE 25 MG TABLET PO ×2 (08:18→22:04)
[2024-11-05] MEDS: HYDROCHLOROTHIAZIDE 25 MG TABLET 12.5 MG PO (08:18)
[2024-11-05] MEDS: APIXABAN 5 MG TABLET 2.5 MG PO ×2 (08:18→22:03)
[2024-11-05] MEDS: AMLODIPINE BESYLATE 5 MG TABLET 10 MG PO (08:18)
[2024-11-05] MEDS: CHOLECALCIFEROL (VITAMIN D3) 125 MCG/5,000 UNIT TABLET PO (08:18)
[2024-11-05] MEDS: MULTIVITAMIN TABLET 1 TAB PO (08:18)
[2024-11-05] MEDS: GUAIFENESIN 600 MG TAB.ER.12H PO ×2 (08:18→22:04)
[2024-11-05] MEDS: CEFTRIAXONE 1,000 MG in 0.9 % SODIUM CHLORIDE 50 ML 100 MG IV (09:13)
--- NOTE | 2024-11-05 10:58 | PM.PN ---
Progress Note: Subjective Subjective Interval history: Patient stable this am. Remains on vapotherm and breathing improved. Less SOB and chest not as tight. Mild cough and sputum. Afebrile. No chest pain or palpitations. Appetite improving and no emesis or diarrhea. Continued weakness. Exam Constitutional Vital Signs, click to edit/add: Last Vital Signs Temp 98.1 F 11/05/24 08:18 Pulse 83 11/05/24 09:55 Resp 20 11/05/24 08:18 BP 141/83 11/05/24 08:18 Pulse Ox 92 L 11/05/24 09:55 O2 Del Method Vapotherm 11/05/24 05:10 O2 Flow Rate 40 11/05/24 05:10 FiO2 40 11/05/24 08:18 Documenting provider has reviewed patient's vital signs: yes Common normals: no apparent distress, oriented x3 and alert HENMT Common normals: normocephalic Eye Common normals: PERRL and EOMs intact bilaterally Respiratory Common normals: normal respiratory effort Auscultation: wheezes scattered wheezes Cardio Common normals: regular rate, regular rhythm, no gallops, no murmurs and no rub GI Common normals: Normal to inspection, nondistended, normoactive bowel sounds present and non-tender Extremity Common normals: no pedal edema Progress Note: Objective Labs Labs: Short CBC 11/05/24 Range/Units 05:33 WBC 11.4 H (4.0-11.0) 10^3/uL Hgb 11.5 L (12.0-16.0) g/dL Hct 37.2 (36.0-48.0) % Plt Count 166 (150-450) 10^3/uL BMP 11/05/24 05:33 Sodium 141 Potassium 4.5 Chloride 100 Carbon Dioxide 41.0 H BUN 28.0 H Creatinine 0.66 Glucose 195 H Calcium 8.4 L Progress Note: A&P Assessment and Plan (1) Pneumonia: (2) COPD exacerbation: (3) Acute on chronic respiratory failure with hypoxia and hypercapnia: (4) Benign essential hypertension: (5) Paroxysmal atrial fibrillation: Plan Patient slowly improving. Continue antibiotics, steroids, and breathing treatments. Wean oxygen as tolerated. Continue PT/OT for weakness. Transfer to med/surg.
[2024-11-06] VITALS (28 sets, daily range): BP systolic 110–156; BP diastolic 63–86; PULSE 68–155; TEMP 36.3–36.8; O2SAT 90–94
--- NOTE | 2024-11-06 04:34 | ECG_ITS ---
The [facility] Test Date: 2024-11-06 Pat Name: NATAN BOLDEN Department: Room: [facility] Gender: Female Delivery Lead: : 1935 Requested By: [id number] Order Number: [id number] Reading MD: DEIRDRE ARGUETA Measurements Intervals [place] Rate: 120 P: PA: QRS: -18 QRSD: 129 T: -1 QT: 324 QTc: 459 Interpretive Statements ATRIAL FIBRILLATION WITH RAPID VENTRICULAR RESPONSE RIGHT BUNDLE BRANCH BLOCK [120+ ms QRS DURATION, UPRIGHT V1, 40+ ms S IN I/aVL/V4/V5/V6] INTERPRETATION BASED ON A DEFAULT AGE OF 40 YEARS Electronically Signed On 11-06-2024 20:44:12 EST by DEIRDRE ARGUETA
[2024-11-06] MEDS: METHYLPREDNISOLONE SOD SUCC PF 125 MG/2 ML VIAL IVP (04:53)
[2024-11-06] MEDS: METOPROLOL TARTRATE 5 MG/5 ML VIAL IVP ×2 (04:55→12:22)
[2024-11-06 05:36] LABS: Hematocrit 36.9 % (36.0-48.0); Hemoglobin 11.5 g/dL (12.0-16.0); Immature Granulocytes Abs Auto 0.07 10^3/uL (0.00-0.03); Immature Granulocytes Pct Auto 0.8 % (0.0-0.5); Lymphocytes Absolute Auto 0.2 10^3/uL (1.2-3.8); Lymphocytes Percent Auto 2.3 % (20.5-60.0); Mean Corpuscular HGB Conc 31.2 g/dL (29.9-35.2); Mean Corpuscular Hemoglobin 30.7 pg (26.7-34.0); Mean Corpuscular Volume 98.4 fL (81.0-99.0); Mean Platelet Volume 10.8 fL (9.5-13.5); Monocytes Absolute Auto 0.3 10^3/uL (0.3-0.8); Monocytes Percent Auto 3.4 % (1.7-12.0); Neutrophils Absolute Auto 8.1 10^3/uL (1.4-6.5); Neutrophils Percent Auto 93.5 % (43.0-75.0); Platelet Count 187 10^3/uL (150-450); Red Blood Count 3.75 10^6/uL (4.20-5.40); Red Cell Distribution Width 14.3 % (11.0-15.0); White Blood Count 8.6 10^3/uL (4.0-11.0)
[2024-11-06 05:55] LABS: Anion Gap 6.4; BUN Creatinine Ratio 38.6; Calcium 7.9 mg/dL (8.5-10.1); Carbon Dioxide 38.5 mmol/L (21.0-32.0); Chloride 101 mmol/L (98-107); Estimated GFR (African America >60 (>=60 mL/min/1.73m^2); Estimated GFR (Non-African Ame >60 (>=60 mL/min/1.73m^2); Glucose 223 mg/dL (74-106); Potassium 3.9 mmol/L (3.5-5.1); Sodium 142 mmol/L (136-145)
--- NOTE | 2024-11-06 08:25 | PM.PN ---
Progress Note: Subjective Subjective Interval history: Patient's breathing has improved. Currently on 4L NC oxygen. Mild cough and sputum. Afebrile. No chest pain or palpitations. Appetite improving and no emesis or diarrhea. Heart rate elevation today 140's. Stopped duonebs and placed on Xopenex. Also increased Metoprolol from 25mg to 50mg BID. Appears to be in Afib with RVR still. On Eliquis. Stopped amlodipine and added Cardizem 60mg QID start now. Also given Metoprolol IV x 2 over last night and this morning. Patient denies chest pain or heart racing. Exam Narrative Exam Narrative: General: Patient is alert, and oriented to person, place and time with normal affect, proper hygiene, short of breath with conversing Skin: no visible rashes, or ulcers Head: atraumatic, acephalic Eyes: PERRLA, no nystagmus present, conjunctiva clear, no scleral icterus Ears: normal gross auditory acuity Heart: increased rate and rhythm Lungs: no audible wheezes, crackles but diminished breath sounds all lung rosales Abdomen: Normal audible bowel sounds, no distension, No palpable masses, no organomegaly, no rebound/guarding/ or rigidity Musculoskeletal: no swelling bilateral lower extremities Neuro: CN II-X grossly intact Constitutional Vital Signs, click to edit/add: Last Vital Signs Temp 98.2 F 11/06/24 07:55 Pulse 145 H 11/06/24 08:00 Resp 20 11/06/24 08:00 BP 125/86 11/06/24 07:55 Pulse Ox 92 L 11/06/24 07:55 O2 Del Method Vapotherm 11/06/24 07:55 O2 Flow Rate 40 11/06/24 07:55 FiO2 40 11/06/24 07:55 Progress Note: Objective Labs Labs: Short CBC 11/06/24 Range/Units 05:27 WBC 8.6 (4.0-11.0) 10^3/uL Hgb 11.5 L (12.0-16.0) g/dL Hct 36.9 (36.0-48.0) % Plt Count 187 (150-450) 10^3/uL BMP 11/06/24 05:27 Sodium 142 Potassium 3.9 Chloride 101 Carbon Dioxide 38.5 H BUN 27.0 H Creatinine 0.70 Glucose 223 H Calcium 7.9 L Progress Note: A&P Assessment and Plan (1) Pneumonia: Assessment and Plan: continue treatment with Levaquin and Rocephin, Decrease IV steriods today to 40mg q6 hours. OPEP as needed. off Vapotherm to 4L NC oxygen now. Qualifiers: Pneumonia type: due to unspecified organism Laterality: bilateral Lung location: lower lobe of lung Qualified Code(s): J18.9 - Pneumonia, unspecified organism (2) Acute on chronic respiratory failure with hypoxia and hypercapnia: Assessment and Plan: off Vapotherm to 4L NC oxygen now (3) COPD exacerbation: Assessment and Plan: continue treatment for #1 (4) Paroxysmal atrial fibrillation: Assessment and Plan: rate is not controlled today, I have increased metoprolol to 50mg BID, Given 2 PRN doses of IV metoprolol. Stop amlodipine, start Oral Cardizem 60mg QID. switched to Xopenex. will check Magnesium and electrolytes now. Continue eliquis (5) Benign essential hypertension: Assessment and Plan: continue metoprolol Plan Patient is a DNR CCA continue Eliquis for DVT prophylaxis Patient will require 1-2 more days of hospital necessary care.
--- NOTE | 2024-11-06 08:46 | CM.NOTE ---
2nd Important Message From Medicare discussed with pt, pt denies any questions or concerns.
[2024-11-06] MEDS: AMLODIPINE BESYLATE 5 MG TABLET 10 MG PO (08:50)
[2024-11-06] MEDS: METOPROLOL TARTRATE 50 MG TABLET PO ×2 (08:50→20:49)
[2024-11-06] MEDS: APIXABAN 5 MG TABLET 2.5 MG PO ×2 (08:50→20:48)
[2024-11-06] MEDS: CHOLECALCIFEROL (VITAMIN D3) 125 MCG/5,000 UNIT TABLET PO (08:50)
[2024-11-06] MEDS: HYDROCHLOROTHIAZIDE 25 MG TABLET 12.5 MG PO (08:50)
[2024-11-06] MEDS: GUAIFENESIN 600 MG TAB.ER.12H PO ×2 (08:50→20:49)
[2024-11-06] MEDS: MULTIVITAMIN TABLET 1 TAB PO (08:50)
[2024-11-06] MEDS: METHYLPREDNISOLONE SOD SUCC PF 40 MG/ML VIAL IVP ×3 (10:19→21:41)
[2024-11-06] MEDS: CEFTRIAXONE 1,000 MG in 0.9 % SODIUM CHLORIDE 50 ML 100 MG IV (10:19)
[2024-11-06] MEDS: 0.9 % SODIUM CHLORIDE 250 ML 10 ML IV (10:19)
[2024-11-06] MEDS: LEVALBUTEROL HCL 1.25 MG/3 ML VIAL NEB IH ×3 (10:47→22:26)
--- NOTE | 2024-11-06 10:48 | PT.DAILY ---
Physical Therapy Daily Note PT Daily Note/Assess Start: 11/03/24 08:27 Freq: Status: Active Protocol: Document 11/06/24 10:44 MARIANNA (Rec: 11/06/24 10:48 MARIANNA [id number]) Physical Therapy Daily Note/Assessment Time In/Time Out Time In 10:25 Time Out 10:40 Pain In Pain N/A Pain Out Pain N/A Subjective Subjective Pt sitting in BS chair upon arrival. Agrees to PT this morning. On Vapotherm. Therapeutic Exercise Time Therapeutic Exercise 7 Minutes (minutes) Therapeutic Exercise 1 Units Therapeutic Exercise Treatment Therapeutic Exercise Seated bilat LE strengthening ex complete in BS chair Treatment 10x ea. Standing marches and HS curls 10x ea at RW with bilat UE support - CGA. Therapeutic Activity Time Therapeutic Activity 3 Minutes (minutes) Therapeutic Activity 0 Units Therapeutic Activity Treatment Chair Transfer Standby Assistance Ability Therapeutic Activity Sit>stand SBA to RW. Standing ex complete at RW prior Comments to gait. Pt amb f-b 3'x3. SpO2 drops to 83% but quickly recovers within 30 sec to 90% with seated rest break. Remains in BS chair with call light within reach and needs met. Total Physical Therapy Time Total Therapy 10 Minutes Total Physical 1 Therapy Units Summary Daily Note Summary Sats drop with exertion to low 80% while on vapotherm. Functional/steady but limited session due to vapotherm.
[2024-11-06] MEDS: LEVOFLOXACIN IN DEXTROSE 5 % 750 MG/150 ML PREMIX 100 MG IV (11:30)
--- NOTE | 2024-11-06 12:01 | CM.NOTE ---
Rounds made with Dr. Jackson, respiratory therapy at bedside titrating oxygen down to 4L NC. No discharge today. Pt c/o diarrhea today, Dr. Jackson will order a probiotic for pt. SW will send updates to [facility], pt will return to [facility] for skilled therapy when medically ready for discharge.
--- NOTE | 2024-11-06 13:21 | SWNOTE1 ---
SW sent updates to [facility] for precert. Updates included vitals, PT/OT notes from today, physician notes, and nursing notes.
[2024-11-06] MEDS: DILTIAZEM HCL 60 MG TABLET PO ×3 (14:07→21:41)
[2024-11-06 15:08] LABS: Anion Gap 4.7; BUN Creatinine Ratio 26.4; Calcium 8.2 mg/dL (8.5-10.1); Carbon Dioxide 38.2 mmol/L (21.0-32.0); Chloride 99 mmol/L (98-107); Estimated GFR (African America 59 (>=60 mL/min/1.73m^2); Estimated GFR (Non-African Ame 49 (>=60 mL/min/1.73m^2); Glucose 308 mg/dL (74-106); Magnesium 1.8 mg/dL (1.8-2.4); Potassium 3.9 mmol/L (3.5-5.1); Sodium 138 mmol/L (136-145)
[2024-11-06] MEDS: L. ACIDOPHILUS/L.BULGARICUS 1 PACKET GRAN.PACK PO (20:48)
[2024-11-06] MEDS: ALPRAZOLAM 0.25 MG TABLET PO (22:28)
[2024-11-07] VITALS (25 sets, daily range): BP systolic 114–136; BP diastolic 58–84; PULSE 51–144; TEMP 36.4–36.7; O2SAT 90–93
[2024-11-07] MEDS: LEVALBUTEROL HCL 1.25 MG/3 ML VIAL NEB IH ×4 (04:18→23:19)
[2024-11-07 04:50] LABS: Basophils Percent Auto 0.1 % (0.2-2.0); Hematocrit 37.2 % (36.0-48.0); Hemoglobin 11.3 g/dL (12.0-16.0); Immature Granulocytes Abs Auto 0.11 10^3/uL (0.00-0.03); Immature Granulocytes Pct Auto 1.2 % (0.0-0.5); Lymphocytes Absolute Auto 0.2 10^3/uL (1.2-3.8); Lymphocytes Percent Auto 1.8 % (20.5-60.0); Mean Corpuscular HGB Conc 30.4 g/dL (29.9-35.2); Mean Corpuscular Hemoglobin 30.2 pg (26.7-34.0); Mean Corpuscular Volume 99.5 fL (81.0-99.0); Mean Platelet Volume 11.3 fL (9.5-13.5); Monocytes Absolute Auto 0.3 10^3/uL (0.3-0.8); Monocytes Percent Auto 3.6 % (1.7-12.0); Neutrophils Absolute Auto 8.4 10^3/uL (1.4-6.5); Neutrophils Percent Auto 93.3 % (43.0-75.0); Platelet Count 204 10^3/uL (150-450); Red Blood Count 3.74 10^6/uL (4.20-5.40); Red Cell Distribution Width 14.2 % (11.0-15.0)
[2024-11-07 05:01] LABS: BUN Creatinine Ratio 39.3; Calcium 8.2 mg/dL (8.5-10.1); Carbon Dioxide 39.2 mmol/L (21.0-32.0); Chloride 99 mmol/L (98-107); Estimated GFR (African America >60 (>=60 mL/min/1.73m^2); Estimated GFR (Non-African Ame >60 (>=60 mL/min/1.73m^2); Glucose 294 mg/dL (74-106); Potassium 4.2 mmol/L (3.5-5.1); Sodium 139 mmol/L (136-145)
[2024-11-07] MEDS: METHYLPREDNISOLONE SOD SUCC PF 40 MG/ML VIAL IVP ×4 (05:32→21:29)
[2024-11-07] MEDS: DILTIAZEM HCL 60 MG TABLET PO ×4 (05:34→21:29)
--- NOTE | 2024-11-07 09:39 | PM.PN ---
Progress Note: Subjective Subjective Interval history: Patient's breathing has improved. Currently on 4L NC oxygen. Mild cough and sputum. Afebrile. No chest pain or palpitations. Appetite improving and no emesis or diarrhea. Patient denies chest pain or heart racing. She is less short of breath with conversing today compared to yesterday. Exam Narrative Exam Narrative: General: Patient is alert, and oriented to person, place and time with normal affect, proper hygiene, short of breath with conversing Skin: no visible rashes, or ulcers Head: atraumatic, acephalic Eyes: PERRLA, no nystagmus present, conjunctiva clear, no scleral icterus Ears: normal gross auditory acuity Heart: increased rate and rhythm Lungs: no audible wheezes, crackles but diminished breath sounds all lung rosales Abdomen: Normal audible bowel sounds, no distension, No palpable masses, no organomegaly, no rebound/guarding/ or rigidity Musculoskeletal: no swelling bilateral lower extremities Neuro: CN II-X grossly intact Constitutional Vital Signs, click to edit/add: Last Vital Signs Temp 97.8 F 11/07/24 08:00 Pulse 110 H 11/07/24 08:00 Resp 20 11/07/24 08:00 BP 115/58 11/07/24 08:00 Pulse Ox 90 L 11/07/24 08:00 O2 Del Method Nasal Cannula 11/07/24 08:00 O2 Flow Rate 4 11/07/24 08:00 FiO2 40 11/06/24 10:47 Progress Note: Objective Labs Labs: Short CBC 11/07/24 Range/Units 04:36 WBC 9.0 (4.0-11.0) 10^3/uL Hgb 11.3 L (12.0-16.0) g/dL Hct 37.2 (36.0-48.0) % Plt Count 204 (150-450) 10^3/uL BMP 11/06/24 11/07/24 14:35 04:36 Sodium 138 139 Potassium 3.9 4.2 Chloride 99 99 Carbon Dioxide 38.2 H 39.2 H BUN 28.0 H 33.0 H Creatinine 1.06 H 0.84 Glucose 308 H 294 H Calcium 8.2 L 8.2 L Progress Note: A&P Assessment and Plan (1) Pneumonia: Assessment and Plan: continue treatment with Levaquin and Rocephin, Decreased IV steroids to 40mg q6 hours. OPEP as needed. off Vapotherm to 4L NC oxygen now. Qualifiers: Laterality: bilateral Lung location: lower lobe of lung Pneumonia type: due to unspecified organism Qualified Code(s): J18.9 - Pneumonia, unspecified organism (2) Acute on chronic respiratory failure with hypoxia and hypercapnia: Assessment and Plan: ff Vapotherm to 4L NC oxygen now, hopeful stable to go to SNF tomorrow (3) COPD exacerbation: Assessment and Plan: continue treatment for #1 (4) Paroxysmal atrial fibrillation: Assessment and Plan: metoprolol to 50mg BID, continue Oral Cardizem 60mg QID and eliquis (5) Benign essential hypertension: Assessment and Plan: continue metoprolol Plan Patient is a DNR CCA continue Eliquis for DVT prophylaxis Patient will require 1-2 more days of hospital necessary care, precert to rehab facility
[2024-11-07] MEDS: METOPROLOL TARTRATE 50 MG TABLET PO ×2 (09:49→21:29)
[2024-11-07] MEDS: MULTIVITAMIN TABLET 1 TAB PO (09:49)
[2024-11-07] MEDS: L. ACIDOPHILUS/L.BULGARICUS 1 PACKET GRAN.PACK PO ×2 (09:49→21:29)
[2024-11-07] MEDS: HYDROCHLOROTHIAZIDE 25 MG TABLET 12.5 MG PO (09:49)
[2024-11-07] MEDS: GUAIFENESIN 600 MG TAB.ER.12H PO ×2 (09:49→21:29)
[2024-11-07] MEDS: APIXABAN 5 MG TABLET 2.5 MG PO ×2 (09:49→21:29)
[2024-11-07] MEDS: CHOLECALCIFEROL (VITAMIN D3) 125 MCG/5,000 UNIT TABLET PO (09:49)
[2024-11-07] MEDS: CEFTRIAXONE 1,000 MG in 0.9 % SODIUM CHLORIDE 50 ML 100 MG IV (09:50)
--- NOTE | 2024-11-07 10:30 | REH.PTDLY ---
Physical Therapy Daily Note PT Daily Note/Assess Start: 11/03/24 08:27 Freq: Status: Active Protocol: Document 11/07/24 09:35 FLORENCE (Rec: 11/07/24 10:29 FLORENCE [id number]) Physical Therapy Daily Note/Assessment Time In 09:20 Time Out 09:35 Subjective Pt up in chair upon arrival, nodding off. Pt reports she'd like to stay up in chair and is agreeable to some light exercises. Pt is now on 4 L of O2. SpO2 at 90% prior to rx. Therapeutic Exercise 8 Minutes (minutes) Therapeutic Exercise 1 Units Therapeutic Exercise Instructed in B LE seated exs 10x ea with AP, LAQ, Treatment marching, hip abd and add squeeze for improved strength . Cues to perform at slower pace and focus on breathing . SpO2 fluctuates between 88-90% with seated exs. Therapeutic Activity 5 Minutes (minutes) Therapeutic Activity 0 Units Therapeutic Activity Sit to stand transfers CGA. Gait training with RW and 4 Comments L of O2 20 feet in room. Limited gait distance due to pt not ambulating a distance as of late. Once sitting checked pt's O2 sats and pt is at 80%, taking 3 mins to rise to 90%. Total Therapy 13 Minutes Total Physical 1 Therapy Units Daily Note Summary Pt pleasant to work with and complains of mild fatigue post rx. Pt's O2 sats drop to 80% with gait training on 4L of O2. Nursing notified of this. Pt at 90% sitting up in chair post rx. Pt wishes to be able to go home upon DC as she misses her house, but would recommend SNF stay to become stronger as pt is very weak and unable to care for herself at this time.
--- NOTE | 2024-11-07 11:22 | SWNOTE1 ---
SW sent PT/OT , labs, and vitals from today to [facility] for precert.
--- NOTE | 2024-11-07 13:31 | CM.NOTE ---
Rounds made with Dr. Jackson, pt tolerating 4L NC. Pt will possible discharge 2/ for skilled therapy at [facility].
--- NOTE | 2024-11-07 14:15 | SWNOTE1 ---
Pt has expressed to doctor, case management, nurse, an PT that she is now going home and not going to the [facility]. SW called daughter to confirm the plan is for her is to return to [facility]. SW explained to daughter how pt did with therapy today and that she would still benefit from SNF. Pt's daughter in agreement and feels she needs rehab for a little bit longer. Daughter voiced that pt has not been home since September and is just ready to be home. SW expressed to daughter that SW will stiop back in. SW stopped in room in afternoon and daughter was in room. SW did express to pt that she would benefit from some more rehab. SW explained that her stats are still dropping and it takes a bit to recover. Pt did become teary eyed and voiced she is just ready to be home, but she is agreeable to go back for a little bit.
--- NOTE | 2024-11-07 14:23 | SWNOTE1 ---
ADITI received an email from Jaiden turpin [facility] and 's insurance is requesting a peer to peer from the physician and they are intending to deny. ADITI sent the information on to Dr. Jackson and let her know peer to peer has to be done by 12:00 on 11/08/24.
[2024-11-07] MEDS: CALCIUM CARBONATE 500 MG (200MG ELEMENTAL) TAB CHEW PO (16:18)
[2024-11-07] MEDS: METOPROLOL TARTRATE 5 MG/5 ML VIAL IVP (18:47)
[2024-11-08] VITALS (24 sets, daily range): BP systolic 104–152; BP diastolic 61–84; PULSE 61–140; TEMP 36.4–36.6; O2SAT 87–93
[2024-11-08] MEDS: LEVALBUTEROL HCL 1.25 MG/3 ML VIAL NEB IH ×4 (04:00→22:49)
[2024-11-08] MEDS: METHYLPREDNISOLONE SOD SUCC PF 40 MG/ML VIAL IVP ×2 (04:01→09:22)
[2024-11-08] MEDS: DILTIAZEM HCL 60 MG TABLET PO ×2 (05:15→11:30)
[2024-11-08 05:23] LABS: Basophils Percent Auto 0.2 % (0.2-2.0); Eosinophils Percent Auto 0.1 % (0.9-7.0); Hematocrit 37.1 % (36.0-48.0); Hemoglobin 11.6 g/dL (12.0-16.0); Immature Granulocytes Abs Auto 0.15 10^3/uL (0.00-0.03); Immature Granulocytes Pct Auto 1.7 % (0.0-0.5); Lymphocytes Absolute Auto 0.2 10^3/uL (1.2-3.8); Lymphocytes Percent Auto 2.1 % (20.5-60.0); Mean Corpuscular HGB Conc 31.3 g/dL (29.9-35.2); Mean Corpuscular Hemoglobin 31.1 pg (26.7-34.0); Mean Corpuscular Volume 99.5 fL (81.0-99.0); Mean Platelet Volume 10.9 fL (9.5-13.5); Monocytes Absolute Auto 0.3 10^3/uL (0.3-0.8); Monocytes Percent Auto 2.9 % (1.7-12.0); Neutrophils Absolute Auto 8.5 10^3/uL (1.4-6.5); Platelet Count 203 10^3/uL (150-450); Red Blood Count 3.73 10^6/uL (4.20-5.40); White Blood Count 9.1 10^3/uL (4.0-11.0)
[2024-11-08 05:39] LABS: Anion Gap 9.2; Calcium 8.5 mg/dL (8.5-10.1); Carbon Dioxide 38.2 mmol/L (21.0-32.0); Chloride 98 mmol/L (98-107); Estimated GFR (African America >60 (>=60 mL/min/1.73m^2); Estimated GFR (Non-African Ame >60 (>=60 mL/min/1.73m^2); Glucose 298 mg/dL (74-106); Potassium 4.4 mmol/L (3.5-5.1); Sodium 141 mmol/L (136-145)
[2024-11-08] MEDS: APIXABAN 5 MG TABLET 2.5 MG PO ×2 (08:16→20:03)
[2024-11-08] MEDS: MULTIVITAMIN TABLET 1 TAB PO (08:16)
[2024-11-08] MEDS: HYDROCHLOROTHIAZIDE 25 MG TABLET 12.5 MG PO (08:16)
[2024-11-08] MEDS: METOPROLOL TARTRATE 50 MG TABLET PO ×2 (08:16→09:22)
[2024-11-08] MEDS: GUAIFENESIN 600 MG TAB.ER.12H PO (08:16)
[2024-11-08] MEDS: CHOLECALCIFEROL (VITAMIN D3) 125 MCG/5,000 UNIT TABLET PO (08:16)
[2024-11-08] MEDS: L. ACIDOPHILUS/L.BULGARICUS 1 PACKET GRAN.PACK PO ×2 (08:17→20:04)
[2024-11-08] MEDS: METOPROLOL TARTRATE 5 MG/5 ML VIAL IVP (08:50)
[2024-11-08] MEDS: CEFTRIAXONE 1,000 MG in 0.9 % SODIUM CHLORIDE 50 ML 100 MG IV (08:50)
--- NOTE | 2024-11-08 08:58 | P.PN_ITS ---
Progress Note: Subjective Subjective Interval history: Patient's HR started in the 140-150's this morning, she was given IV metoprolol 5mg once. I have increased her Oral lopressor to 100mg BID. I have also increased oral Cardizem today to 120mg TID. Elevated proBNP 2300, Chest X-ray shows infiltrate vs pulm edema. I have also placed her on strict I&O's, Lasix 20mg IV daily and stopped IV steroids and antibiotics. Will recheck COVID AND Flu tests due to possibly worsening pneumonia on CXR. She is now requring 5L NC up from 4L. She has less conversational dyspnea today. She denies any current issues. I have also ordered an Echocardiogram along with Cardiology consult for further recommendations for treatment of her Afib and CHF. I along with Case management and social work had discussion with daughter and son at bedside. As of now her insurance denied [facility] as they feel she would not perform well with rehab services. We have given family options for home with hospice, verse prison care, verse combination of a few things home health, incase patient continue to not improve much from where she is. Family was appreciative of conversations and they will discuss and let us know of plan moving forward. Patient voiced she would prefer home in some way if possible. Exam Narrative Exam Narrative: General: Patient is alert, and oriented to person, place and time with normal affect, proper hygiene, short of breath with conversing Skin: no visible rashes, or ulcers Head: atraumatic, acephalic Eyes: PERRLA, no nystagmus present, conjunctiva clear, no scleral icterus Ears: normal gross auditory acuity Heart: increased rate and rhythm Lungs: no audible wheezes, but crackles and diminished breath sounds all lung rosales Abdomen: Normal audible bowel sounds, no distension, No palpable masses, no organomegaly, no rebound/guarding/ or rigidity Musculoskeletal: no swelling bilateral lower extremities Neuro: CN II-X grossly intact Constitutional Vital Signs, click to edit/add: Last Vital Signs Temp 97.8 F 11/08/24 07:39 Pulse 116 H 11/08/24 07:59 Resp 20 11/08/24 07:39 BP 129/72 11/08/24 07:39 Pulse Ox 87 L 11/08/24 07:39 O2 Del Method Nasal Cannula 11/08/24 08:00 O2 Flow Rate 5 11/08/24 08:00 FiO2 40 11/06/24 10:47 Progress Note: Objective Labs Labs: Short CBC 11/08/24 Range/Units 05:12 WBC 9.1 (4.0-11.0) 10^3/uL Hgb 11.6 L (12.0-16.0) g/dL Hct 37.1 (36.0-48.0) % Plt Count 203 (150-450) 10^3/uL BMP 11/08/24 05:12 Sodium 141 Potassium 4.4 Chloride 98 Carbon Dioxide 38.2 H BUN 30.0 H Creatinine 0.79 Glucose 298 H Calcium 8.5 Progress Note: A&P Assessment and Plan (1) Pneumonia: Assessment and Plan: stop Levaquin and Rocephin, stop IV steroids, start doxycycline 100mg BID x 7 days, start prednisone 40mg daily. OPEP as needed. off Vapotherm to 5L NC oxygen now. Chest xray shows worsening pneumonia vs pulm edema. recheck viral testing Qualifiers: Laterality: bilateral Lung location: lower lobe of lung Pneumonia type: due to unspecified organism Qualified Code(s): J18.9 - Pneumonia, unspecified organism (2) Acute on chronic respiratory failure with hypoxia and hypercapnia: Assessment and Plan: still on 5L NC oxygen with desaturation with ambulation. (3) Atrial fibrillation with RVR: Assessment and Plan: most likely from respiratory status and prolonged hypoxia, Will increase metoprolol to 100mg BID, Carizem to 120mg TID. check ECHO today, Cards consult for further recommendations, continue eliquis. (4) COPD exacerbation: Assessment and Plan: see #1. (5) Benign essential hypertension: Assessment and Plan: continue metoprolol (6) Acute CHF (congestive heart failure): Assessment and Plan: elevated proBNP, pulmonary edema, strict I&O's; start lasix 20mg IV daily Qualifiers: Heart failure type: unspecified Qualified Code(s): I50.9 - Heart failure, unspecified Plan Patient is a DNR CCA continue Eliquis for DVT prophylaxis Patient will require 1-2 more days of hospital necessary care
--- NOTE | 2024-11-08 09:26 | XR_ITS ---
The [address] [address] Patient Name: NATAN BOLDEN MRN: [id number] date: 1935 Sex: F Assigned Patient Location: [place] Current Patient Location: [place] Accession/Order Number: [id number] Exam Date: 11/08/2024 09:35 Report Date: 11/08/2024 09:54 At the request of: TASNEEM SIMMONS Procedure: XR chest 1V EXAMINATION: XR chest 1V HISTORY: sob, increased O2 demand COMPARISON: XR chest 11/02/2024 FINDINGS: LUNGS: Dense confluent opacities within lung bases obscuring the heart and diaphragm margins. VASCULATURE: No increased pulmonary vasculature. PLEURA: Cannot exclude pleural effusions. CARDIAC: Obscured. MEDIASTINUM: No visible mass or adenopathy. BONES: No fracture or visible bone lesion. OTHER: Negative. XR/XR chest 1V IMPRESSION: 1. Marked bibasilar infiltrates favoring multifocal pneumonia. Bilateral pleural effusions and marked atelectasis cannot be excluded. 2. Findings have increased on the right, but are grossly stable on the left. Electronically authenticated by: KRISTY ANDERSON Date: 11/08/2024 09:54
--- NOTE | 2024-11-08 09:42 | SWNOTE1 ---
SW spoke to Dr. Jackson and she did do peer to peer, but at this time it was determine pt was not stable for discharge. The insurance advised the doctor to call back and do an urgent appeal once pt is stable. Doctor would like to have a family meeting today to discuss plans going forward as it is possible insurance may deny skilled and have to have a plan if that is the case. ADITI called daughter, Oren, and explained the situation. Pt's daughter and son will be here around 11:30 to meet. ADITI notified case management who is with the doctor rounding.
--- NOTE | 2024-11-08 10:30 | CM.NOTE ---
Rounds made with Dr. Jackson, Case Management and social services assistant, pt continues to require 4L NC at rest and have drop in oxygen when ambulating. Pt was denies for skilled at this time, discussed further options with pt and family. Discussed medical terminologist care or Hospice care. Family will discuss with pt options regarding discharge planning. SW will speak with family further regarding options and decision making.
--- NOTE | 2024-11-08 11:12 | PT.DAILY ---
Physical Therapy Daily Note PT Daily Note/Assess Start: 11/03/24 08:27 Freq: Status: Active Protocol: Document 11/08/24 11:05 MARIANNA (Rec: 11/08/24 11:12 MARIANNA [id number]) Physical Therapy Daily Note/Assessment Time In/Time Out Time In 10:37 Time Out 10:50 Pain In Pain N/A Pain Out Pain N/A Subjective Subjective pt sitting in BS chair upon arrival. reports she is agreeable to PT but does not want to over do it since she is being weaned from vapotherm to 5L O2. SpO2 93% upon arrival. Therapeutic Exercise Time Therapeutic Exercise 5 Minutes (minutes) Therapeutic Exercise 1 Units Therapeutic Exercise Treatment Therapeutic Exercise Instructed to complete bilat LE strengthening ex 10x ea Treatment in BS chair to improve functional mobility prior to gait/transfers. Therapeutic Activity Time Therapeutic Activity 4 Minutes (minutes) Therapeutic Activity 0 Units Therapeutic Activity Treatment Chair Transfer Contact Guard Assist Ability Therapeutic Activity Pt performs sit>stand to RW CGA. Pt amb 30' around room Comments , SBA. Min difficulty negotiation of RW when turning around but able to self correct. Min SOB - Spo2 91%. Total Physical Therapy Time Total Therapy 9 Minutes Total Physical 1 Therapy Units Summary Daily Note Summary Spo2 drops slightly with amb to 91%. Needs increased time for turning. Min fatigued upon completion.
--- NOTE | 2024-11-08 12:22 | CA_ITS ---
Patient Name: NATAN BOLDEN MR#: [id number] : 1935 Exam Date: 11/08/2024 Ordering Doctor: TASNEEM SIMMONS . ECHOCARDIOGRAM REPORT PROCEDURE: CA ECHO LIMITED INDICATIONS: afib with RVR, COPD, hypertension COMPARISON: None. DESCRIPTION: Limited ECHOCARDIOGRAM Real-time transthoracic echocardiography with 2D and M-mode performed. QUALITY: Technical quality was good. Limited echocardiogram per physician order. LEFT VENTRICLE: Normal chamber size. Proximal septal hypertrophy (sigmoid septum). Normal systolic function. LV EF: Normal left ventricular ejection fraction, (>55%). DIASTOLIC: ATRIAL SEPTUM: LEFT ATRIUM: Severe dilatation. RIGHT ATRIUM: Severe dilatation. RIGHT VENTRICLE: Mild dilatation. Normal systolic function. TRICUSPID VALVE: Normal mobility and thickness. MITRAL VALVE: Moderately thickened and calcified with reduced posterior leaflet mobility. AORTIC VALVE: Normal trileaflet appearance. Moderately calcified aortic valve. Moderately diminished mobility. AORTIC ROOT: Normal diameter and appearance. Ascending aorta is normal in size. PULMONIC VALVE: Normal thickness and mobility. PERICARDIUM: No evidence of pericardial effusion. IVC: IVC is dilated (3.2 cm), does not collapse. PLEURA: CONCLUSION: 1. Normal left regular size and systolic function. 2. Mildly dilated right ventricle with normal systolic function. 3. Severe biatrial dilatation. 4. Limited study performed with no Doppler interrogation as requested. Adult Echocardiography Procedure Report Left Ventricle LVEDD (3.7 - 5.6 cm): 4.19 cm LVESD (2.2 - 4.0 cm): 3.07 cm LVIVS thickness (0.6 - 1.2 cm): 1.69 cm LVPW thickness (0.5 - 1.0 cm): 0.97 cm LVOT Diameter 2.16 cm Left Atrium LA Volume Index (2D A2C): 51.87 ml/m2 Left Atrium Systolic Dimension: 5.08 cm Mitral Valve Right Ventricle Aorta AO Root Diam: 3.86 cm Ascending Ao Diam: 3.61 cm Aortic Valve Tricuspid Valve Pulmonic Valve Right Atrium Right Atrium Systolic Pressure: 57.91 ml, 57.91 ml Dictated by: Roman Plasencia M.D. on 11/09/2024 at 13:30 Approved by: Roman Plasencia M.D. on 11/09/2024 at 13:33
--- NOTE | 2024-11-08 12:25 | PM.CACN ---
History of Present Illness History of Present Illness Consult date: 11/08/24 Requesting physician: Lorena Jackson Consult reason: atrial fibrillation Chief complaint: RESP. FAILURE, PNEUMONIA, COPD EXACERBATION Narrative: Per admit H&P: Patient with a history of emphysema currently a resident at a rehabilitation [facility], presented to the emergency room with increasing cough and shortness of breath and hypoxia, but 6 weeks ago she was on 2 L, was admitted to an outside facility for COPD was able to improve her oxygen and but still requiring 4 L, he was then transferred to rehab for the last month, today though having increasing hypoxia now requiring up to 6 L, in the emergency room O2 saturation was 85%. When I saw her she was still in the emergency room secondary to being on BiPAP and awaiting transfer to the intensive care unit, resting fairly comfortably in bed some cough throughout the evaluation, maybe some mild conversational dyspnea denied chest pain Update 11/08/2024 The patient usually sees the [facility] in [place]. She has a h/o longstanding PAF, has been on a DOAC for years. Denies a h/o CAD, does have a h/o CHF - not clear if HFpEF or HFrEF. No prior caths per her description. Last episode of AF was around Michael with an admission for pneumonia back then too. She states her SOB has not improved to much. She is coughing but denies sputum production. No fever or chills. No recent weight gain, mild LE edema. She had an episode of chest pain last week prior to being diagnosed with pneumonia. None since. Her HRs have ranged from the 90s up to 150s. She has had sinus rhythm, sinus arrhythmia and PAF with controlled as well as rapid ventricular response. Review of Systems ROS Status of ROS 10 or more systems reviewed and unremarkable except as noted in history and below [facility] Medical History (Updated 11/06/24 @ 14:19 by Lorena Jackson, DO) Hypoxemia ?R09.02 - Hypoxemia (ICD-10) Respiratory failure ?J96.90 - Respiratory failure, unspecified, unspecified whether with hypoxia or hypercapnia (ICD-10) History of embolism ?Z86.718 - Personal history of other venous thrombosis and embolism (ICD-10) History of hypertension ?Z86.79 - Personal history of other diseases of the circulatory system (ICD-10) History of scoliosis ?Z87.39 - Personal history of other diseases of the musculoskeletal system and connective tissue (ICD-10) History of gastroesophageal reflux (GERD) ?Z87.19 - Personal history of other diseases of the digestive system (ICD-10) History of mitral valve disease ?Z86.79 - Personal history of other diseases of the circulatory system (ICD-10) History of anemia ?Z86.2 - Personal history of diseases of the blood and blood-forming organs and certain disorders involving the immune mechanism (ICD-10) History of heart failure ?Z86.79 - Personal history of other diseases of the circulatory system (ICD-10) History of atrial fibrillation ?Z86.79 - Personal history of other diseases of the circulatory system (ICD-10) History of COPD ?Z87.09 - Personal history of other diseases of the respiratory system (ICD-10) Hx of chronic respiratory failure ?Z87.09 - Personal history of other diseases of the respiratory system (ICD-10) Hx of bacterial pneumonia ?Z87.01 - Personal history of pneumonia (recurrent) (ICD-10) Surgical History (Updated 11/03/24 @ 04:59 by Nereyda Good) H/O: hysterectomy ?Z90.710 - Acquired absence of both cervix and uterus (ICD-10) Hx of appendectomy ?Z90.49 - Acquired absence of other specified parts of digestive tract (ICD-10) Family History (Updated 11/03/24 @ 05:00 by Nereyda Good) Other Family history of hypertension Social History (Updated 11/03/24 @ 05:01 by Nereyda Good) Within the past year, how often did you have a drink containing alcohol: monthly or less Smoking status: Former smoker Non-prescribed substance use: denies use Previous occupational history: retired Highest level of school completed/degree received: high school graduate In a typical week, how many times do you talk on the telephone with family, friends, or neighbors: 3 or more times per week How often do you get together with friends or relatives: 3 or more times per week Little interest or pleasure in doing things: not at all Feeling down, depressed, or hopeless: not at all Feel stressed/tense/nervous/anxious/difficulty sleeping: not at all Meds Home Medications and Allergies Home Medications ?Medication ?Instructions ?Recorded ?Confirmed ?Type albuterol sulfate 2.5 mg/3 mL 2.5 mg inhalation Q6H PRN 11/02/24 11/03/24 History (0.083 %) solution for nebulization shortness of breath or wheezing alendronate 70 mg tablet 70 mg PO QWEEK 11/02/24 11/02/24 History amlodipine 10 mg tablet 10 mg PO DAILY 11/02/24 11/02/24 History apixaban 2.5 mg tablet (Eliquis) 2.5 mg PO BID 11/02/24 11/02/24 History cholecalciferol (vitamin D3) 125 125 mcg PO DAILY 11/02/24 11/02/24 History mcg (5,000 unit) tablet (Vitamin D3) guaifenesin 600 mg tablet, 600 mg PO BID 11/02/24 11/02/24 History extended release 12 hr hydrochlorothiazide 12.5 mg capsule 12.5 mg PO DAILY 11/02/24 11/02/24 History metoprolol tartrate 25 mg tablet 25 mg PO BID 11/02/24 11/02/24 History multivitamin (Daily Multi-Vitamin 1 tab PO DAILY 11/02/24 11/02/24 History tablet) polyethylene glycol 3350 17 17 g PO DAILY 11/02/24 11/02/24 History gram/dose oral powder (ClearLax) tiotropium 2.5 mcg-olodaterol 2.5 2 inh inhalation DAILY 11/02/24 11/02/24 History mcg/actuation mist for inhalation (Stiolto Respimat) Allergies Allergy/AdvReac Type Severity Reaction Status Date / Time calcium AdvReac Mild Abdominal Verified 11/02/24 11:16 Pain Sulfa (Sulfonamide AdvReac Mild Abdominal Verified 11/02/24 11:16 Antibiotics) Pain Exam Constitutional Vital Signs, click to edit/add: Last Vital Signs Temp 97.9 F 11/08/24 11:16 Pulse 106 H 11/08/24 12:00 Resp 16 11/08/24 11:25 BP 132/84 11/08/24 11:16 Pulse Ox 93 L 11/08/24 11:16 O2 Del Method Nasal Cannula 11/08/24 12:00 O2 Flow Rate 5 11/08/24 11:25 FiO2 40 11/06/24 10:47 Common normals: no apparent distress General appearance: cooperative and frail appearing Nutritional appearance: thin Orientation/consciousness: Yes oriented to person, Yes oriented to place and Yes oriented to time HENMT Common normals: normocephalic Face and sinus: normal facial exam Eye General eye: normal appearance of both eyes Chest Chest: 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) Respiratory Effort & inspection: tachypneic and uses accessory muscles Auscultation: bronchial breath sounds Cardio Rhythm: abnormal rhythm (irregularly irregular) Extremity Other: compression socks Results Labs and Meds Lab results: CBC 11/08/24 Range/Units 05:12 WBC 9.1 (4.0-11.0) 10^3/uL RBC 3.73 L (4.20-5.40) 10^6/uL Hgb 11.6 L (12.0-16.0) g/dL Hct 37.1 (36.0-48.0) % Plt Count 203 (150-450) 10^3/uL Neut # (Auto) 8.5 H (1.4-6.5) 10^3/uL Lymph # (Auto) 0.2 L (1.2-3.8) 10^3/uL Ada # (Auto) 0.3 (0.3-0.8) 10^3/uL Eos # (Auto) 0.0 (0.0-0.7) 10^3/uL Baso # (Auto) 0.0 (0.0-0.1) 10^3/uL Comprehensive Metabolic Panel 11/08/24 Range/Units 05:12 Sodium 141 (136-145) mmol/L Potassium 4.4 (3.5-5.1) mmol/L Chloride 98 (98-107) mmol/L Carbon Dioxide 38.2 H (21.0-32.0) mmol/L BUN 30.0 H (7.0-18.0) mg/dL Creatinine 0.79 (0.55-1.02) mg/dL Glucose 298 H (74-106) mg/dL Calcium 8.5 (8.5-10.1) mg/dL Intake and Output 11/07/24 11/08/24 11/08/24 23:59 07:59 15:59 Intake Total 50 / 50 Output Total 300 / 1100 450 / 1100 250 / 250 Balance -300 / -800 -450 / -800 -200 / -200 Intake: IV 50 / 50 Ceftriaxone 1,000 mg In 0.9 % 50 / 50 Sodium Chloride 50 ml @ 100 mls /hr IV Q24H [facility] Rx#:[id number] Output: Urine 300 / 1100 450 / 1100 250 / 250 Other: # Bowel Movements 1 1 1 CXR: XR/XR chest 1V IMPRESSION: 1. Marked bibasilar infiltrates favoring multifocal pneumonia. Bilateral pleural effusions and marked atelectasis cannot be excluded. 2. Findings have increased on the right, but are grossly stable on the left. Electronically authenticated by: KRISTY ANDERSON Date: 11/08/2024 09:54 12 lead EKG: Interpretive Statements ATRIAL FIBRILLATION WITH RAPID VENTRICULAR RESPONSE RIGHT BUNDLE BRANCH BLOCK [120+ ms QRS DURATION, UPRIGHT V1, 40+ ms S IN I/aVL/V4/V5/V6] INTERPRETATION BASED ON A DEFAULT AGE OF 40 YEARS Electronically Signed On 11-06-2024 20:44:12 EST by DAVID ARGUETA Dictated By: David Argueta D.O. Signed By: 11/06/242043 Assessment and Plan Assessment and Plan (1) Pneumonia: Qualifiers: Laterality: bilateral Lung location: lower lobe of lung Pneumonia type: due to unspecified organism Qualified Code(s): J18.9 - Pneumonia, unspecified organism (2) Acute on chronic respiratory failure with hypoxia and hypercapnia: (3) COPD exacerbation: (4) Paroxysmal atrial fibrillation: Assessment and Plan: CHADS2-VASc 5 on Eliquis (5) Benign essential hypertension: Plan 1. Routine labs, correct electrolytes, check THS/free t4 2. 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 Given the presence of physiological stressors and comorbid conditions, her target HR should be 110-120 or less. If the HRs are persistently above 130, consider an IV cardizem drip 4. Avoid additional BBlockers given severe lung disease 5. If needed, a 0.25 mg IV bolus of Digoxin may be given 6. Would obtain records of recent cardiovascular testing including echocardiograms to clarify EF%, valvular function, RVSP and other structural parameters. If no echo within the past 6 months, obtain an in-patient echo when HRs permit 7. Continue anti-coagulation with DOAC at lower dose given age and weight She is to follow up with her primary cardiology group post discharge Thank you for the consultation. Please call with questions. Vargas Jones MD [place] [facility]
--- NOTE | 2024-11-08 12:51 | SWNOTE1 ---
SW, doctor, and case management met with pt, pt's son, and pt's daughter. Discuss about discharge plans as there is a high chance pt will not get approved for rehab. Discussed other options of bushel worker, private caregivers, home health, and hospice. Pt and family made aware that retirement is private pay. Pt has voiced she does want to return home. Pt's son and daughter do live close by, within a block, and check on her daily. Pt is aware of home health and has had services in the past. SW did provide family with names of hospice companies and hospice pamphlets. Pt and family are going to discuss in further discharge plans. Family and pt are aware that SW, case management, and doctor are available with further questions. SW updated the [place]. [place] did receive email that pt was denied.
[2024-11-08 13:01] LABS: Influenza Virus A Antigen Negative; Influenza Virus B Antigen Negative; Internal Control Within Normal Limits; SARS-CoV-2 Ag NEGATIVE (NEGATIVE)
[2024-11-08] MEDS: FUROSEMIDE 20 MG/2 ML VIAL IVP (13:51)
[2024-11-08] MEDS: DIGOXIN 500 MCG/2 ML AMPUL 125 MCG IV (17:41)
[2024-11-08] MEDS: METOPROLOL TARTRATE 100 MG TABLET PO (20:03)
[2024-11-08] MEDS: DOXYCYCLINE MONOHYDRATE 100 MG CAPSULE PO (20:03)
[2024-11-08] MEDS: ALPRAZOLAM 0.25 MG TABLET PO (21:26)
[2024-11-08] MEDS: DILTIAZEM HCL 60 MG TABLET 120 MG PO (21:27)
[2024-11-09] VITALS (25 sets, daily range): BP systolic 115–138; BP diastolic 63–86; PULSE 61–146; TEMP 36.4–36.7; O2SAT 90–95
--- NOTE | 2024-11-09 00:59 | PC.NURSE ---
Patient up to BSC with one assist. Notified RT her oxygen needed to be increased to 6liters per n.c.
[2024-11-09] MEDS: LEVALBUTEROL HCL 1.25 MG/3 ML VIAL NEB IH ×4 (04:06→23:26)
[2024-11-09 06:08] LABS: Basophils Percent Auto 0.3 % (0.2-2.0); Eosinophils Percent Auto 0.1 % (0.9-7.0); Hemoglobin 12.2 g/dL (12.0-16.0); Immature Granulocytes Abs Auto 0.29 10^3/uL (0.00-0.03); Immature Granulocytes Pct Auto 2.4 % (0.0-0.5); Lymphocytes Absolute Auto 0.2 10^3/uL (1.2-3.8); Lymphocytes Percent Auto 1.9 % (20.5-60.0); Mean Corpuscular HGB Conc 29.8 g/dL (29.9-35.2); Mean Corpuscular Hemoglobin 30.2 pg (26.7-34.0); Mean Corpuscular Volume 101.5 fL (81.0-99.0); Mean Platelet Volume 11.1 fL (9.5-13.5); Monocytes Absolute Auto 0.7 10^3/uL (0.3-0.8); Monocytes Percent Auto 5.7 % (1.7-12.0); Neutrophils Absolute Auto 10.9 10^3/uL (1.4-6.5); Neutrophils Percent Auto 89.6 % (43.0-75.0); Platelet Count 245 10^3/uL (150-450); Red Blood Count 4.04 10^6/uL (4.20-5.40); Red Cell Distribution Width 13.7 % (11.0-15.0); White Blood Count 12.1 10^3/uL (4.0-11.0)
[2024-11-09 06:17] LABS: BUN Creatinine Ratio 48.5; Calcium 8.8 mg/dL (8.5-10.1); Carbon Dioxide 44.8 mmol/L (21.0-32.0); Chloride 100 mmol/L (98-107); Estimated GFR (African America >60 (>=60 mL/min/1.73m^2); Estimated GFR (Non-African Ame >60 (>=60 mL/min/1.73m^2); Glucose 251 mg/dL (74-106); Potassium 3.8 mmol/L (3.5-5.1); Sodium 144 mmol/L (136-145)
[2024-11-09] MEDS: DILTIAZEM HCL 60 MG TABLET 120 MG PO ×2 (06:45→21:40)
[2024-11-09] MEDS: APIXABAN 5 MG TABLET 2.5 MG PO ×2 (08:27→21:29)
[2024-11-09] MEDS: METOPROLOL TARTRATE 100 MG TABLET PO ×2 (08:28→21:29)
[2024-11-09] MEDS: DOXYCYCLINE MONOHYDRATE 100 MG CAPSULE PO ×2 (08:29→21:29)
[2024-11-09] MEDS: CHOLECALCIFEROL (VITAMIN D3) 125 MCG/5,000 UNIT TABLET PO (08:29)
[2024-11-09] MEDS: MULTIVITAMIN TABLET 1 TAB PO (08:29)
[2024-11-09] MEDS: PREDNISONE 20 MG TABLET 40 MG PO (08:29)
[2024-11-09] MEDS: L. ACIDOPHILUS/L.BULGARICUS 1 PACKET GRAN.PACK PO ×2 (08:30→21:29)
--- NOTE | 2024-11-09 08:57 | P.PN_ITS ---
Progress Note: Subjective Subjective Interval history: Patient is in good spirits this morning. Says her breathing is improved. No chest or heart complaints. She slept well last night. Discussed her anxiety has been high and she was given dose of xanax last night which helped. She is amendable to trying some Vistaril. Family meeting today to discuss plan of care moving forward with all kids and patient. Exam Narrative Exam Narrative: General: Patient is alert, and oriented to person, place and time with normal affect, proper hygiene, short of breath with conversing Skin: no visible rashes, or ulcers Head: atraumatic, acephalic Eyes: PERRLA, no nystagmus present, conjunctiva clear, no scleral icterus Ears: normal gross auditory acuity Heart: increased rate and rhythm Lungs: no audible wheezes, but crackles and diminished breath sounds all lung rosales Abdomen: Normal audible bowel sounds, no distension, No palpable masses, no organomegaly, no rebound/guarding/ or rigidity Musculoskeletal: no swelling bilateral lower extremities Neuro: CN II-X grossly intact Constitutional Vital Signs, click to edit/add: Last Vital Signs Temp 97.9 F 11/09/24 07:04 Pulse 124 H 11/09/24 07:56 Resp 14 11/09/24 07:49 BP 134/76 11/09/24 07:49 Pulse Ox 90 L 11/09/24 07:49 O2 Del Method Nasal Cannula 11/09/24 07:04 O2 Flow Rate 6 11/09/24 07:04 FiO2 40 11/06/24 10:47 Progress Note: Objective Labs Labs: Short CBC 11/09/24 Range/Units 05:41 WBC 12.1 H (4.0-11.0) 10^3/uL Hgb 12.2 (12.0-16.0) g/dL Hct 41.0 (36.0-48.0) % Plt Count 245 (150-450) 10^3/uL BMP 11/09/24 05:41 Sodium 144 Potassium 3.8 Chloride 100 Carbon Dioxide 44.8 H BUN 33.0 H Creatinine 0.68 Glucose 251 H Calcium 8.8 Progress Note: A&P Assessment and Plan (1) Pneumonia: Assessment and Plan: continue doxycycline 100mg BID x 7 days, prednisone 40mg daily. OPEP as needed. off Vapotherm to 5L NC oxygen now. Chest xray shows worsening pneumonia vs pulm edema. recheck viral testing negative Qualifiers: Laterality: bilateral Lung location: lower lobe of lung Pneumonia type: due to unspecified organism Qualified Code(s): J18.9 - Pneumonia, unspecified organism (2) Acute on chronic respiratory failure with hypoxia and hypercapnia: Assessment and Plan: still on 5L NC oxygen with desaturation with ambulation (3) Atrial fibrillation with RVR: Assessment and Plan: most likely from respiratory status and prolonged hypoxia, contiue metoprolol to 100mg BID, Cardizem 120mg TID. check ECHO-pending, got digoxin 125mcg IV push x 1 last night, per Cards recommendations, continue eliquis. will also try Vistaril for anxiety. (4) COPD exacerbation: Assessment and Plan: see #1 (5) Benign essential hypertension: Assessment and Plan: continue metoprolol (6) Acute CHF (congestive heart failure): Assessment and Plan: elevated proBNP, pulmonary edema, strict I&O's; start lasix 20mg IV daily Qualifiers: Heart failure type: unspecified Qualified Code(s): I50.9 - Heart failure, unspecified Plan Patient is a DNR CCA continue Eliquis for DVT prophylaxis Awaiting predatory animal exterminator plan per family
--- NOTE | 2024-11-09 09:21 | PC.NURSE ---
Fax sent Cardio called message left
--- NOTE | 2024-11-09 10:52 | SWNOTE1 ---
SW reached out to daughter, Oren, to see if there was anything SW could assist with or set up. Oren stated her and her 3 other siblings are meeting today at 4:30 in pt's room to discuss discharge plans with patient. ADITI let doctor and case management know.
--- NOTE | 2024-11-09 11:24 | CM.NOTE ---
Rounds made with Dr. Jackson. Dr. Jackson discusses plan of care and findings. Erika verbalizes understanding.
[2024-11-09 12:32] LABS: Magnesium 1.9 mg/dL (1.8-2.4); Thyroid Stimulating Hormone 1.947 uIU/mL (0.358-3.740)
[2024-11-09] MEDS: FUROSEMIDE 20 MG/2 ML VIAL IVP (14:22)
[2024-11-09] MEDS: METOPROLOL TARTRATE 5 MG/5 ML VIAL IVP (20:02)
[2024-11-09] MEDS: HYDROXYZINE PAMOATE 25 MG CAPSULE PO (21:29)
[2024-11-10] VITALS (19 sets, daily range): BP systolic 113–131; BP diastolic 70–88; PULSE 62–124; TEMP 36.4–36.8; O2SAT 80–95
[2024-11-10] MEDS: LEVALBUTEROL HCL 1.25 MG/3 ML VIAL NEB IH ×5 (04:00→22:07)
[2024-11-10] MEDS: HYDROXYZINE PAMOATE 25 MG CAPSULE PO (05:22)
[2024-11-10] MEDS: DILTIAZEM HCL 60 MG TABLET 120 MG PO ×3 (05:22→21:28)
[2024-11-10 06:04] LABS: Hematocrit 41.2 % (36.0-48.0); Hemoglobin 12.1 g/dL (12.0-16.0); Mean Corpuscular HGB Conc 29.4 g/dL (29.9-35.2); Mean Corpuscular Hemoglobin 30.3 pg (26.7-34.0); Mean Corpuscular Volume 103.3 fL (81.0-99.0); Mean Platelet Volume 11.2 fL (9.5-13.5); Platelet Count 259 10^3/uL (150-450); Red Blood Count 3.99 10^6/uL (4.20-5.40); Red Cell Distribution Width 13.8 % (11.0-15.0); White Blood Count 14.4 10^3/uL (4.0-11.0)
[2024-11-10 06:17] LABS: Anion Gap 0.3; BUN Creatinine Ratio 39.5; Calcium 8.7 mg/dL (8.5-10.1); Carbon Dioxide 46.8 mmol/L (21.0-32.0); Chloride 100 mmol/L (98-107); Estimated GFR (African America >60 (>=60 mL/min/1.73m^2); Estimated GFR (Non-African Ame >60 (>=60 mL/min/1.73m^2); Glucose 229 mg/dL (74-106); Potassium 4.1 mmol/L (3.5-5.1); Sodium 143 mmol/L (136-145)
[2024-11-10 06:21] LABS: Lymphocytes Absolute Manual 0.43 10^3/uL (1.20-3.80); Segmented Neut Absolute Manual 12.96 10^3/uL (1.4-6.5)
--- NOTE | 2024-11-10 08:05 | PM.PN ---
Progress Note: Subjective Subjective Interval history: Patient took a turn for the worse this morning, again difficulty with shortness of breath, pulse ox dropped to mid 80's on 5L, so back on high flow Vapotherm oxygen. I have placed order for PRN nebs, on top of her scheduled and stopped the IV lasix as patient does not appear fluid overloaded. HR 90-130's. Reasonably increases with acute respiratory distress. Despite our best efforts patient continues to have respiratory decline. Family meeting today with her 4 children and grand daughters present. All agreed with Hospice Care. [facility] hosp[facility] nurse present at beside, Bhavna (social work), Faiza (case fitter) all at bedside for meeting. I have explained patient's course and worsening status today. Patient and family wish to go home with hospice. They wish to just keep her comfortable. She was made a DNRCC per all their requests. This was changed and updated in the chart. Will stop telemetry, lab draws. Lemus Catheter was placed for end of life care. I have started Xanax and oral Morphine. [facility] hospice plans to get home arrangements made today and the plan is to send her home tomorrow. Exam Narrative Exam Narrative: General: Patient is alert, and oriented to person, place and time with normal affect, proper hygiene, very short of breath with conversing, increased work of breathing on vapotherm Skin: no visible rashes, or ulcers Head: atraumatic, acephalic Eyes: PERRLA, no nystagmus present, conjunctiva clear, no scleral icterus Ears: normal gross auditory acuity Heart: increased rate and irregular rhythm Lungs: diminished breath sounds all lung rosales Abdomen: Normal audible bowel sounds, no distension, No palpable masses, no organomegaly, no rebound/guarding/ or rigidity Musculoskeletal: no swelling bilateral lower extremities Neuro: CN II-X grossly intact Constitutional Vital Signs, click to edit/add: Last Vital Signs Temp 97.8 F 11/10/24 07:19 Pulse 90 11/10/24 07:19 Resp 30 H 11/10/24 07:19 BP 131/88 11/10/24 07:19 Pulse Ox 80 L 11/10/24 07:19 O2 Del Method Vapotherm 11/10/24 07:19 O2 Flow Rate 40 11/10/24 04:45 FiO2 50 11/10/24 07:19 Progress Note: Objective Labs Labs: Short CBC 11/10/24 Range/Units 05:12 WBC 14.4 H (4.0-11.0) 10^3/uL Hgb 12.1 (12.0-16.0) g/dL Hct 41.2 (36.0-48.0) % Plt Count 259 (150-450) 10^3/uL BMP 11/10/24 05:12 Sodium 143 Potassium 4.1 Chloride 100 Carbon Dioxide 46.8 H BUN 34.0 H Creatinine 0.86 Glucose 229 H Calcium 8.7 Progress Note: A&P Assessment and Plan (1) Pneumonia: Assessment and Plan: continue doxycycline 100mg BID x 7 days, prednisone 40mg daily. OPEP as needed. on high flow Vapotherm to 5L NC oxygen now, comfort care with Xanax and morphine Qualifiers: Laterality: bilateral Lung location: lower lobe of lung Pneumonia type: due to unspecified organism Qualified Code(s): J18.9 - Pneumonia, unspecified organism (2) Acute on chronic respiratory failure with hypoxia and hypercapnia: Assessment and Plan: continues with high flow oxygen, trying to wean to NC; echo showed severely dilated Atria. (3) Acute CHF (congestive heart failure): Assessment and Plan: stop lasix today. Is not fluid overloaded. Qualifiers: Heart failure type: unspecified Qualified Code(s): I50.9 - Heart failure, unspecified (4) Atrial fibrillation with RVR: Assessment and Plan: most likely from respiratory status and prolonged hypoxia, continue metoprolol to 100mg BID, Cardizem 120mg TID. continue eliquis. (5) COPD exacerbation: Assessment and Plan: see #1 (6) Benign essential hypertension: Assessment and Plan: continue metoprolol (7) E-coli UTI: Assessment and Plan: urine culture positive for E.coli, patient received Levaquin 750mg x 5 days, which is complete duration of treatment. (8) Transition from acute care to hospice: Assessment and Plan: see HPI, plan for comfort care, transition to home tomorrow Plan Patient was made a DNRCC today Plan to discharge home with Hospice tomorrow
--- NOTE | 2024-11-10 08:06 | SWNOTE1 ---
SW received a message from doctor on 11/09/24 and family decided on hospice. No preference on hospice company. SW reached out to home care specialist at [facility] and she was able to come on 11/09/24 and meet with family. It was decided that they would meet this morning at 9:00am to sign patient on to hospice. Nursing is aware and so is doctor.
--- NOTE | 2024-11-10 09:10 | CM.NOTE ---
Rounds made with Dr. Jackson, spoke with pt and family in length regarding pt's condition and discharge planning. Pt wishes at this time to go home with Hospice, family in agreement. [facility] at bedside and will sign pt on today and plan for pt's discharge.
--- NOTE | 2024-11-10 10:11 | SWNOTE1 ---
Several family members in room as well as [facility] hospice nurse. Dr. Jackson, ADITI, and case management stopped in room as well. After discussion with family, patient, and hospice it was decided that pt is GIP appropriate with [facility] and will stay today and plan for discharge tomorrow to home with [facility]. Nurse is aware of the decision as well. Pt did switch code status to DNRCC, SW made copy for chart and gave hospice copy as well.
[2024-11-10] MEDS: DOXYCYCLINE MONOHYDRATE 100 MG CAPSULE PO ×2 (10:13→21:28)
[2024-11-10] MEDS: METOPROLOL TARTRATE 100 MG TABLET PO ×2 (10:13→21:28)
[2024-11-10] MEDS: MULTIVITAMIN TABLET 1 TAB PO (10:13)
[2024-11-10] MEDS: CHOLECALCIFEROL (VITAMIN D3) 125 MCG/5,000 UNIT TABLET PO (10:13)
[2024-11-10] MEDS: APIXABAN 5 MG TABLET 2.5 MG PO ×2 (10:13→21:28)
[2024-11-10] MEDS: PREDNISONE 20 MG TABLET 40 MG PO (10:13)
--- NOTE | 2024-11-10 11:03 | PT.DAILY ---
Physical Therapy Daily Note PT Daily Note/Assess Start: 11/03/24 08:27 Freq: Status: Active Protocol: Document 11/10/24 11:02 MARIANNA (Rec: 11/10/24 11:03 MARIANNA [id number]) Visit Not Completed Visit Not Completed Visit Not Completed Other Due to: Other Reason Visit Pt signed with hospice. Planned to dc from PT caseload Not Completed at this time. Physical Therapy Daily Note/Assessment Time In/Time Out Time In 11:02 Time Out 11:02 GG. Functional Abilities and Goals-Complete for Swing Bed Patients Only [id number]. Self-Care [id number]. Mobility
--- NOTE | 2024-11-10 14:50 | SWNOTE1 ---
SW spoke to family, patient in and out of sleep. They have decided for discharge tomorrow. SW to set up transport. SW set up [facility] for 11:00 am on 11/11/24. SW advised nursing, pt's family, and hospice of time.
[2024-11-10] MEDS: ALPRAZOLAM 0.25 MG TABLET PO (20:05)
[2024-11-10] MEDS: MORPHINE SULFATE 20 MG/ML ORAL CONCENTRATE SOLUTION 5 MG PO (21:29)
[2024-11-11 00:40] VITALS: BP 103/66; PULSE 69; O2SAT 88
[2024-11-11] MEDS: MORPHINE SULFATE 20 MG/ML ORAL CONCENTRATE SOLUTION 5 MG PO (03:00)
[2024-11-11 04:30] VITALS: PULSE 75; O2SAT 85
[2024-11-11] MEDS: LEVALBUTEROL HCL 1.25 MG/3 ML VIAL NEB IH (04:30)
[2024-11-11] MEDS: ALPRAZOLAM 0.25 MG TABLET PO (04:30)
[2024-11-11 05:53] VITALS: BP 106/67; PULSE 75; O2SAT 85
--- NOTE | 2024-11-11 06:12 | PC.NURSE ---
0300 Patient was becoming agitated. Spoke with patient to help the patient become more comfortable. Patient given morphine. 0430 Patient becoming anxious, stated she would like something for anxiety. Xanax given, patient was having difficulty swallowing the pill. started to chew xanax and was able to swallow it. patient repositioned in bed. Family at the bedside.
[2024-11-11 08:00] VITALS: BP 118/57; PULSE 68; PULSE 80; TEMP 36.1; O2SAT 91
--- NOTE | 2024-11-11 09:40 | P.DS_ITS ---
DS: Providers Provider Date of admission: 11/02/24 18:59 Primary care physician: THEO SWAIN DO Consults: 11/02/24 18:59 Occupational Therapy Eval and Treat Routine Reason for consultation: Only if needed for Rehab Has provider been notified: No Physical Therapy Eval and Treat Routine Reason for consultation: Eval and Treat Has provider been notified: No 11/06/24 08:24 Occupational Therapy Eval and Treat Routine Reason for consultation: weakness, hypoxia Has provider been notified: No Physical Therapy Eval and Treat Routine Reason for consultation: weakness, hypoxia Has provider been notified: No 11/08/24 08:46 Consult to Cardiology Routine Reason for consultation: afib with RVR despite meds Has provider been notified: No 11/09/24 16:40 Consult to Hospice Routine Reason for consultation: end stage COPD- [place] Has provider been notified: No DS: Diagnosis Discharge Diagnosis (1) Pneumonia: Qualifiers: Laterality: bilateral Lung location: lower lobe of lung Pneumonia type: due to unspecified organism Qualified Code(s): J18.9 - Pneumonia, unspecified organism (2) Acute on chronic respiratory failure with hypoxia and hypercapnia: (3) Acute CHF (congestive heart failure): Qualifiers: Heart failure type: unspecified Qualified Code(s): I50.9 - Heart failure, unspecified (4) Atrial fibrillation with RVR: (5) COPD exacerbation: (6) Benign essential hypertension: (7) E-coli UTI: (8) Transition from acute care to hospice: Plan Admission findings: Sinus tachycardia, respiratory distress, acute hypoxia respiratory failure with O2 sat of 85% on 4 L requiring BiPAP ventilation, lactic acidosis, leukocytosis normal but significant left shift, elevated pCO2 due to acute exacerbation of chronic oxygen dependent hypercapnic respiratory failure COPD secondary to bilateral healthcare acquired pneumonia resulting in severe sepsis Severe sepsis due to Healthcare acquired pneumonia resulting in acute hypoxic respiratory failure requiring BiPAP ventilation with acute exacerbation of chronic hypoxic respiratory failure oxygen dependent hypercapnic COPD-off of BiPAP currently, continue with steroids, aerosols, IV antibiotics, trying to obtain sputum culture still, CT scan did not show any pulmonary embolism. Patient unable to tolerate large volume volume fluid boluses as typically recommended by severe sepsis but blood pressure was stable Acute UTI-culture pending, monitor results of cultures, antibiotics as outlined above likely carpal Iron deficiency anemia-monitor daily-Down somewhat today Osteoporosis-can hold alendronate while in the hospital Chronic anticoagulation secondary to atrial fibrillation-continue with current medication Hypertension-continue with current medication Left ventricular hypertrophy-maintain quality blood pressure control Right bundle branch block-stable Hypomagnesemia-supplemented, monitor Chronic constipation-continue current medication Mild protein calorie malnutrition-encourage higher protein diet Admission status: Patient with bilateral pneumonia with acute hypoxia respiratory failure requiring BiPAP ventilation, healthcare acquired pneumonia with severe sepsis, medically necessary treatment will span 2 midnights. Inpatient status. ? ? DS: Summary Hospital Course Hospital Course: She was admitted with healthcare acquired pneumonia, treated with aggressively with IV antibiotics and initially BiPAP ventilation, unable to improve her lung function significantly and patient's condition continued to deteriorate, long discussions multiple times with family and elected to have her placed under the care of hospice patient to go home with hospice today. Status at Discharge Functional status at discharge: bed bound Overall status at discharge: patient is not back to baseline Time Spent with Patient Time attestation: Total time spent providing and/or coordinating discharge services: Time spent: greater than 30 minutes Exam Constitutional Vital Signs, click to edit/add: Last Vital Signs Temp 97.5 F L 11/10/24 21:28 Pulse 75 11/11/24 05:53 Resp 22 H 11/11/24 05:53 BP 106/67 11/11/24 05:53 Pulse Ox 85 L 11/11/24 05:53 O2 Del Method Nasal Cannula 11/11/24 05:53 O2 Flow Rate 6 11/11/24 04:30 FiO2 70 11/10/24 08:51 Documenting provider has reviewed patient's vital signs: yes Common normals: no apparent distress Discharge Plan Discharge Disposition: Hospice - Home Discharge Medications: Continued Stiolto Respimat 2.5-2.5 mcg/actuation mist 2 inh inhalation DAILY albuterol sulfate 2.5 mg /3 mL (0.083 %) solution for nebulization 2.5 mg inhalation Q6H PRN (Reason: shortness of breath or wheezing) Discontinued Eliquis 2.5 mg tablet 2.5 mg PO BID multivitamin [Daily Multi-Vitamin] Tablet 1 tab PO DAILY guaifenesin 600 mg tablet extended release 12hr 600 mg PO BID metoprolol tartrate 25 mg tablet 25 mg PO BID alendronate 70 mg tablet 70 mg PO QWEEK Patient Comments: ON SATURDAYS amlodipine 10 mg tablet 10 mg PO DAILY cholecalciferol (vitamin D3) [Vitamin D3] 125 mcg (5,000 unit) tablet 125 mcg PO DAILY hydrochlorothiazide 12.5 mg capsule 12.5 mg PO DAILY polyethylene glycol 3350 [ClearLax] 17 gram/dose powder 17 g PO DAILY Print Language: [place] Home Theatre Technician/Administrative Support Specialist Instructions: Discharge to [facility] skilled Forms: Portal Instructions Discharge Date/Time: 11/11/24 12:40
[2024-11-11 10:22] VITALS: O2SAT 93
== END 2024-11-11 12:40 | disposition hospice, home (50) | DRG 193 ==
LOC: ER 14:32 → ICU 11-03 10:25 → MS 11-05 13:44
PROVIDERS: Family Medicine; Registered Nurse; Admitting Provider Family Medicine; Emergency Provider Emergency Medicine; PCP Family Medicine; Visit Provider Family Medicine
DX: J18.9 Pneumonia, unspecified organism (principal); I50.41 Acute combined systolic (congestive) and diastolic (congestive) heart failure; J96.21 Acute and chronic respiratory failure with hypoxia; J96.22 Acute and chronic respiratory failure with hypercapnia; N39.0 Urinary tract infection, site not specified; E87.20 Acidosis, unspecified; E44.1 Mild protein-calorie malnutrition; Z99.81 Dependence on supplemental oxygen; J43.9 Emphysema, unspecified; Y95 Nosocomial condition; D50.9 Iron deficiency anemia, unspecified; M81.0 Age-related osteoporosis without current pathological fracture; Z79.01 Long term (current) use of anticoagulants; K59.09 Other constipation; I45.10 Unspecified right bundle-branch block; E83.42 Hypomagnesemia; I48.0 Paroxysmal atrial fibrillation; Z66 Do not resuscitate; B96.20 Unspecified Escherichia coli [E. coli] as the cause of diseases classified elsewhere; Z87.01 Personal history of pneumonia (recurrent); Z86.718 Personal history of other venous thrombosis and embolism; K21.9 Gastro-esophageal reflux disease without esophagitis; Z90.710 Acquired absence of both cervix and uterus; Z90.49 Acquired absence of other specified parts of digestive tract; Z87.891 Personal history of nicotine dependence; Z68.25 Body mass index [BMI] 25.0-25.9, adult; I11.0 Hypertensive heart disease with heart failure
CPT/HCPCS: 36415; 36600; 71045; 71275; 80048; 80053; 81001; 82805; 83605; 83735; 83880; 84443; 84484; 85007; 85025; 85027; 87040; 87070; 87086; 87150; 87186; 87804; 87811; 93005; 93308; 93970; 94640; 94660; 94667; 94668; 94761; 94799; 96365; 96366; 96367; 96368; 96375; 96376; 97110; 97112; 97165; 97530; 97535; 99285; J0456; J0696; J1160; J1940; J2543; J2919; J3370; J3475; J7512; Q0177; Q9967